=== PATIENT | female | born 1950 | race Caucasian/White ===

== ENCOUNTER 2017-04-08 18:55 | Inpatient (IN) | payer MEDICARE ==
[~2017-04-08] VITALS: Ht 157.5 cm; Wt 79.8 kg
[~2017-04-08 18:55] MED LIST: CHOL100062 PO; LAMO150T33 PO; PROP40TA7 PO; SENN8.6T6 PO
[2017-04-08 20:00] VITALS: BP 138/82
--- NOTE | 2017-04-08 20:00 | NUR ---
GPS/CITIZEN PARTICIPATION SPECIALIST ADMISSION NOTES: RECEIVED 67YR. OLD FEMALE ON A 5150 HOLD FOR GD. PT. UNCOOPERATIVE AND DEPRESSED. ORIENTED PT. TO UNIT AND POLICIES, PROTOCOLS, AND RULES. BELONGINGS CHECKED AND LOGGED. CONTRABAND TAKEN FROM PT. AND LOCKED IN CABINET. SAFETY ENVIRONMENT OBSERVED AT ALL TIMES WITH CALL MUKHERJEE WITHIN REACH. PSYCH AND MEDICAL DR. NOTIFIED OF PT. ADMISSION AND FAMILY CONTACTED. WILL CONTINUE TO MONITOR Q 15 MIN FOR SAFETY AND BEHAVIOR.
[2017-04-08] MEDS ORDERED: LORAZEPAM 0.5 MG TABLET PO PRN (21:00)
[2017-04-08] MEDS ORDERED: MAG HYDROX/AL HYDROX/SIMETH 30 ML UDC PO PRN (21:00)
[2017-04-08] MEDS ORDERED: MAGNESIUM HYDROXIDE 30 ML UDC PO PRN (21:00)
[2017-04-08] MEDS ORDERED: ZOLPIDEM TARTRATE 5 MG TABLET PO PRN (21:00)
[2017-04-08] MEDS ORDERED: ACETAMINOPHEN 325 MG TABLET PO PRN (21:00)
[2017-04-08] MEDS ORDERED: LAMO25TA4 PO (21:16)
[2017-04-08] MEDS ORDERED: HYDR-552 PO (21:16)
[2017-04-08] MEDS ORDERED: QUET25TA PO (21:16)
[2017-04-09 06:43] LABS: CHOLESTEROL 197 mg/dL (<200); HDL CHOLESTEROL 35 mg/dL (40-60); LDL 136 mg/dL (0-99); TRIGLYCERIDES 95 mg/dL (30-150)
[2017-04-09 06:54] LABS: ALBUMIN 3.2 g/dL (3.4-5.0); BILIRUBIN,TOTAL 0.6 mg/dL (0.2-1.0); CALCIUM, SERUM 10.3 mg/dL (8.5-10.1); CREATININE 0.7 mg/dL (0.6-1.3); POTASSIUM 3.6 mmol/L (3.5-5.1)
[2017-04-09 08:00] VITALS: BP 138/76
[2017-04-09] MEDS: LamoTRIgine 25 MG TABLET PO SCH ×3 (11:42→21:32)
[2017-04-09] MEDS: CHOLECALCIFEROL 1,000 UNIT TABLET (VIT D3) PO SCH (11:42)
[2017-04-09] MEDS: QUETIAPINE FUMARATE 25 MG TABLET PO SCH (15:24)
--- NOTE | 2017-04-09 15:42 | NUR ---
Initial Discharge Plan Patient lives at [facility]: [address], [place] [address] and wishes to return upon discharge. RIVKA spoke with pt's sister,Trista [phone], and Trista confirmed that patient is from [facility] and that Trista pays for her rent and manages her finances. RIVKA called Carter Rodriguez from [facility] and left a voicemail for him with contact information. RIVKA will help form a safe and proper discharge.
[2017-04-09 15:58] VITALS: BP 152/89
[2017-04-09] MEDS: PROPRANOLOL HCL 40 MG TABLET PO SCH (16:20)
[2017-04-09 20:00] VITALS: BP_SYST 116; BP_SYST 117; BP_DIAS 72; BP_DIAS 73
[2017-04-09] MEDS: LamoTRIgine 100 MG TABLET PO SCH (21:37)
[2017-04-09] MEDS: SENNOSIDES 8.6 MG TABLET PO SCH (21:38)
[2017-04-10 08:00] VITALS: BP 112/66
--- NOTE | 2017-04-10 08:00 | NUR ---
GPS RN AM NOTES: RECEIVED PT. UNCOOPERATIVE AND DEPRESSED. RESPIRATIONS NON LABORED IN ROOM AIR.DENIES ANY PAIN OR DISTRESS.SAFETY ENVIRONMENT OBSERVED AT ALL TIMES WITH CALL MUKHERJEE WITHIN REACH. WILL CONTINUE TO MONITOR Q 15 MIN FOR SAFETY AND BEHAVIOR.
[2017-04-10] MEDS: QUETIAPINE FUMARATE 25 MG TABLET PO SCH ×2 (08:33→21:10)
[2017-04-10] MEDS: LamoTRIgine 25 MG TABLET PO SCH ×3 (08:33→21:11)
[2017-04-10] MEDS: CHOLECALCIFEROL 1,000 UNIT TABLET (VIT D3) PO SCH (08:33)
[2017-04-10] MEDS: PROPRANOLOL HCL 40 MG TABLET PO SCH ×2 (08:34→16:54)
--- NOTE | 2017-04-10 08:56 | NUR ---
RIVKA received a call from Carter Rodriguez, sales engagement executive at [facility], . He informed RIVKA that patient is welcome to come back after discharge.
--- NOTE | 2017-04-10 09:12 | NUR ---
RIVKA called the ACT team at [phone] and spoke with Clover. Clover informed RIVKA that dependency case manager and staff were at a morning meeting and asked RIVKA for her contact information, which RIVKA provided. RIVKA will follow up later in the day if she does not receive a call from the ACT team.
--- NOTE | 2017-04-10 09:37 | NUR ---
RIVKA had a call back from Lola from the [facility] team at [phone] . Lola asked for updates on the patient and asked if there were any behavioral issues. Lola stated that she will call RIVKA on Thursday to inquire about a discharge plan and after care appointments. RIVKA will follow up on Thursday.
[2017-04-10 13:41] VITALS: BP 112/66
[2017-04-10 16:00] VITALS: BP 105/55
[2017-04-10 20:00] VITALS: BP 115/74
[2017-04-10] MEDS: SENNOSIDES 8.6 MG TABLET PO SCH (21:11)
[2017-04-10] MEDS: LamoTRIgine 100 MG TABLET PO SCH (22:02)
[2017-04-11 08:00] VITALS: BP 108/51
[2017-04-11] MEDS: CHOLECALCIFEROL 1,000 UNIT TABLET (VIT D3) PO SCH (08:57)
[2017-04-11] MEDS: QUETIAPINE FUMARATE 25 MG TABLET PO SCH ×2 (08:57→21:46)
[2017-04-11] MEDS: PROPRANOLOL HCL 40 MG TABLET PO SCH ×2 (08:57→17:00)
[2017-04-11 16:11] VITALS: BP 96/57
[2017-04-11] MEDS: LamoTRIgine 25 MG TABLET PO SCH (17:28)
[2017-04-11 20:00] VITALS: BP 119/66
[2017-04-11] MEDS: SENNOSIDES 8.6 MG TABLET PO SCH (21:47)
[2017-04-11] MEDS: LamoTRIgine 100 MG TABLET PO SCH (21:47)
[2017-04-12 08:00] VITALS: BP 113/65
[2017-04-12] MEDS: CHOLECALCIFEROL 1,000 UNIT TABLET (VIT D3) PO SCH (08:01)
[2017-04-12] MEDS: QUETIAPINE FUMARATE 25 MG TABLET PO SCH ×3 (08:01→16:22)
[2017-04-12] MEDS: LamoTRIgine 25 MG TABLET PO SCH ×2 (08:01→16:22)
[2017-04-12] MEDS: PROPRANOLOL HCL 40 MG TABLET PO SCH ×2 (08:02→16:23)
[2017-04-12 15:23] VITALS: BP 121/86
--- NOTE | 2017-04-12 19:28 | NUR ---
rn note; RECEIVED POT IN BED LAYING DOWN COMFORTABLY. ALERT AND RESPONSIVE. PREFERRED TO BE QUIET. NO COMBATIVE BEHAVIOR. NO C/O PAIN OR DISCOMFORT. NO VERBALIZATION OF SUICIDE. WILL CONT TO MONITOR.
[2017-04-12 20:06] VITALS: BP 131/78
[2017-04-12 20:17] VITALS: BP 131/78
[2017-04-12] MEDS: SENNOSIDES 8.6 MG TABLET PO SCH (21:54)
[2017-04-12] MEDS: LamoTRIgine 100 MG TABLET PO SCH (21:54)
--- NOTE | 2017-04-13 06:23 | NUR ---
rn note; PT IN BED SLEEPING, AROUSES EASILY. HAD A GOOD NIGHT SLEEP W/ NO PSYCH OR BEHAVIORAL ISSUES. PT REFUSED TAKING PICTURES FROM HER ABD SX SITE, OTHER BRANCH COMPLIANT W/ MEDICATIONS AND POC. NEEDS ATTENDED . BED LOW LOCKED . WILL CONT TO MONITOR AND WILL ENDORSE TO AM SHIFT FOR ARIS.
[2017-04-13 08:00] VITALS: BP 116/70
[2017-04-13] MEDS: PROPRANOLOL HCL 40 MG TABLET PO SCH ×2 (09:15→17:06)
[2017-04-13] MEDS: LamoTRIgine 25 MG TABLET PO SCH ×2 (09:15→17:04)
[2017-04-13] MEDS: QUETIAPINE FUMARATE 25 MG TABLET PO SCH ×4 (09:16→21:29)
[2017-04-13] MEDS: CHOLECALCIFEROL 1,000 UNIT TABLET (VIT D3) PO SCH (09:16)
--- NOTE | 2017-04-13 10:00 | NUR ---
RN NOTES PT. HAS 5 ABDOMINAL HORIZONTAL SCABS ACROSS ABDOMEN, WOUNDS LOOK PURPLE WITH DRY SKIN. PT. REFUSED TO HAVE PICTURES TAKEN OF HER ABDOMINAL WOUNDS.
--- NOTE | 2017-04-13 10:05 | NUR ---
RN NOTES PT. HAD ABDOMINAL SURGERY MARCH 2017 PER PT.
--- NOTE | 2017-04-13 13:30 | NUR ---
RN NOTES IN THE MORNING PT. WAS HAVING SHAKING LIKE TREMORS IN ARMS, RIGHT HAND MORE INTENSE WHEN HOLDING A CUP OF WATER WHILE TAKING MEDICATIONS. NOTIFIED CVICU RN ABOUT PT.'S CONDITION, WHEN PT. WAS BEING EXAMINED, NO NEW ORDERS GIVEN AT THIS TIME.
[2017-04-13 16:43] VITALS: BP 105/52
[2017-04-13 20:37] VITALS: BP 95/55
[2017-04-13] MEDS: SENNOSIDES 8.6 MG TABLET PO SCH (21:25)
[2017-04-13] MEDS: LamoTRIgine 100 MG TABLET PO SCH (21:26)
[2017-04-14 08:00] VITALS: BP 104/58
[2017-04-14] MEDS: QUETIAPINE FUMARATE 25 MG TABLET PO SCH ×4 (08:39→21:26)
[2017-04-14] MEDS: LamoTRIgine 25 MG TABLET PO SCH ×2 (08:39→17:57)
[2017-04-14] MEDS: PROPRANOLOL HCL 40 MG TABLET PO SCH ×2 (08:40→17:58)
[2017-04-14] MEDS: CHOLECALCIFEROL 1,000 UNIT TABLET (VIT D3) PO SCH (09:27)
[2017-04-14 11:12] LABS: BASOPHILS % (AUTO) 0.4 % (0.0-2.0); EOSINOPHILS # (AUTO) 0.2 /CMM (0.0-0.7); EOSINOPHILS % (AUTO) 2.6 % (0.0-6.0); HEMATOCRIT 38 % (33-45); HEMOGLOBIN 12.9 g/dL (11.5-14.8); LYMPHOCYTES # (AUTO) 1.2 /CMM (0.8-4.8); LYMPHOCYTES % (AUTO) 15.5 % (20.0-44.0); MEAN CORPUSCULAR HEMOGLOBIN 31 PG (26.0-33.0); MEAN CORPUSCULAR HGB CONC 34 g/dl (31.0-36.0); MEAN CORPUSCULAR VOLUME 93 fL (82-100); MONOCYTES # (AUTO) 0.4 /CMM (0.1-1.30); MONOCYTES % (AUTO) 5.7 % (2.0-12.0); NEUTROPHILS # (AUTO) 5.7 /CMM (1.8-8.9); NEUTROPHILS % (AUTO) 75.8 % (43.0-81.0); PLATELET COUNT (AUTO) 235 /CMM (150-450); RDW COEFFICIENT OF VARIATION 14.2 (11.5-15.0); RED BLOOD CELL COUNT(AUTO) 4.13 MIL/uL (4.0-5.2); WHITE BLOOD COUNT (AUTO) 7.5 K/uL (4.3-11.0)
[2017-04-14 11:17] LABS: CALCIUM, SERUM 10.5 mg/dL (8.5-10.1); CREATININE 0.9 mg/dL (0.6-1.3); POTASSIUM 3.7 mmol/L (3.5-5.1)
[2017-04-14 16:06] VITALS: BP 112/67
[2017-04-14 20:51] VITALS: BP 133/71
[2017-04-14] MEDS: ATORVASTATIN 10 MG TABLET PO SCH (21:25)
[2017-04-14] MEDS: LamoTRIgine 100 MG TABLET PO SCH (21:25)
[2017-04-14] MEDS: SENNOSIDES 8.6 MG TABLET PO SCH (21:26)
[2017-04-15 08:00] VITALS: BP 122/62
[2017-04-15] MEDS: QUETIAPINE FUMARATE 25 MG TABLET PO SCH ×4 (10:44→22:03)
[2017-04-15] MEDS: CHOLECALCIFEROL 1,000 UNIT TABLET (VIT D3) PO SCH (10:44)
[2017-04-15] MEDS: LamoTRIgine 25 MG TABLET PO SCH ×2 (10:45→18:27)
[2017-04-15] MEDS: PROPRANOLOL HCL 40 MG TABLET PO SCH ×2 (10:45→17:00)
[2017-04-15 16:42] VITALS: BP 100/59
--- NOTE | 2017-04-15 18:30 | NUR ---
DR.FARRAG JAMES IN TO SEE PT.
[2017-04-15 20:08] VITALS: BP 105/66
[2017-04-15] MEDS: ATORVASTATIN 10 MG TABLET PO SCH (22:01)
[2017-04-15] MEDS: SENNOSIDES 8.6 MG TABLET PO SCH (22:03)
[2017-04-15] MEDS: LamoTRIgine 100 MG TABLET PO SCH (22:08)
[2017-04-16 08:00] VITALS: BP 147/75
[2017-04-16] MEDS: QUETIAPINE FUMARATE 25 MG TABLET PO SCH ×4 (10:44→21:19)
[2017-04-16] MEDS: CHOLECALCIFEROL 1,000 UNIT TABLET (VIT D3) PO SCH (10:44)
[2017-04-16] MEDS: LamoTRIgine 25 MG TABLET PO SCH ×2 (10:44→17:44)
[2017-04-16] MEDS: PROPRANOLOL HCL 40 MG TABLET PO SCH ×2 (10:47→17:44)
[2017-04-16 16:00] VITALS: BP 103/65
[2017-04-16 20:00] VITALS: BP 111/65
[2017-04-16] MEDS: LamoTRIgine 100 MG TABLET PO SCH (21:16)
[2017-04-16] MEDS: SENNOSIDES 8.6 MG TABLET PO SCH (21:18)
[2017-04-16] MEDS: ATORVASTATIN 10 MG TABLET PO SCH (21:19)
[2017-04-17 08:00] VITALS: BP 129/72
[2017-04-17] MEDS: LamoTRIgine 25 MG TABLET PO SCH (08:33)
[2017-04-17] MEDS: CHOLECALCIFEROL 1,000 UNIT TABLET (VIT D3) PO SCH (08:33)
[2017-04-17 08:34] VITALS: BP 129/70
[2017-04-17] MEDS: PROPRANOLOL HCL 40 MG TABLET PO SCH (08:34)
[2017-04-17] MEDS: QUETIAPINE FUMARATE 25 MG TABLET PO SCH (08:34)
--- NOTE | 2017-04-17 11:00 | NUR ---
GPS/RN PT D/C TO ASSISTED LIVING ([facility] [address], [place] [address] ) VIA PRIVATE TRANSPORTATION. NO SI OR HI AT THE TIME OF D/C. PT REFUSED PICTURES TAKEN. BELONGINGS RETURNED. EXIT CARE INSTRUCTIONS AND PRESCRIPTIONS PROVIDED. PT WAS ACCOMPANIED VIA W/C TO TRANSPORTATION.
--- NOTE | 2017-04-17 11:35 | NUR ---
Discharge Note Patient will be discharged to assisted living, [facility] [address], [place] [address] via transportation arranged by aids social worker through [employer], who handles all transportation to the [facility].. Patients sister, Trista [phone] is aware of the discharge and in agreement with the plan. Trista is supportive of patient. Patient will be seen by manager supply chain Aydee Martini from [facility] team, [address] [place] [address], on Thursday, 04/21 at 12:00pm. Patient stated that she did not have a medical doctor and SW made a referral to a medical doctor at [address] [place] [address] . Patient is not a smoker and does not struggle with substance/alcohol abuse.
== END 2017-04-17 11:00 | DRG 885 ==
LOC: GPS 18:55
PROVIDERS: ADMIT Psychiatry & Neurology Psychiatry; ATTEND Internal Medicine
DX: F29 Unspecified psychosis not due to a substance or known physiological condition (principal); E78.5 Hyperlipidemia, unspecified; I10 Essential (primary) hypertension; J45.909 Unspecified asthma, uncomplicated; Z79.899 Other long term (current) drug therapy; F31.9 Bipolar disorder, unspecified; Z73.6 Limitation of activities due to disability
CPT/HCPCS: 36415; 80048-TC; 80053-TC; 80061-TC; 85025-TC; 87081-TC

== ENCOUNTER 2022-04-04 18:43 | Inpatient (IN) | payer MEDICARE ==
[~2022-04-04] VITALS: Ht 160 cm; Wt 52.6 kg
[~2022-04-04 18:43] MED LIST changes: +HYDR-4384 PO; -LAMO150T33 PO; +LAMO150T6 PO; +LAMO25TA4 PO; +QUET25TA PO; +SENN-261 PO; -SENN8.6T6 PO
[2022-04-05 02:55] VITALS: BP 133/60
[2022-04-05] MEDS ORDERED: CARB1TAB21 PO (03:01)
[2022-04-05] MEDS ORDERED: LORA-259 PO (03:02)
[2022-04-05] MEDS ORDERED: MIRT-121 PO (03:03)
[2022-04-05 03:11] VITALS: BP 115/67
[2022-04-05] MEDS ORDERED: ACETAMINOPHEN 325 MG TABLET PO PRN (03:30)
[2022-04-05] MEDS ORDERED: BLOOD SUGAR DIAGNOSTIC 1 EACH STRIP IN ONE (03:30)
[2022-04-05] MEDS ORDERED: TEMAZEPAM 7.5 MG CAPSULE PO PRN (03:30)
[2022-04-05] MEDS ORDERED: LORAZEPAM 0.5 MG TABLET PO PRN (03:30)
[2022-04-05] MEDS ORDERED: MAG HYDROX/AL HYDROX/SIMETH 30 ML UDC PO PRN (03:30)
[2022-04-05] MEDS ORDERED: MAGNESIUM HYDROXIDE 30 ML UDC PO PRN (03:30)
--- NOTE | 2022-04-05 03:58 | NUR ---
RN NOTES : ADMISSION NOTES: ADMITTED THIS 72Y/O FEMALE PATIENT DIRECT ADMIT FROM [facility] ,ADMITTED TO 5150 HOLD GD PER HOLD REFUSAL TO EAT, CONFUSED TO WITH THOUGHT BLOCKING UPON FACE TO FACE ASSESSMENT PATIENT IS A&O X3 DEPRESSED ,EASILY AGITATED ,DISORGNIZED, DISHELVED ,POOR DECISION MAKING, THOUGHT BLOCKING ,DENIES SI /HI AT THIS TIME, PT. IS POOR HISTORIAN, POOR INSIGHT ,POOR JUDGEMENT , BOTH MD AWARE AND NOTIFIED OF THE ADMISSION, PT. RIGHTS DISCUSS BY DISTRIBUTION DISPATCHER , PROVIDE THE PT. WITH HANDBOOK, AND MEDICATIONS GUIDE, ENVIRONMENTAL SAFETY CHECK DONE, ENCOURAGED PT. VERBALIZED ANY FEELING CONCERN TO STAFF, ORIENT TO UNIT POLICY, NO ACUTE DISTRESS NOTED,VITAL SIGNS WNL ,DENIES ANY PAIN AT THIS TIME,WILL CONTINUE TO MONITOR FOR Q15 SAFETY AND BEHAVIOR.
--- NOTE | 2022-04-05 06:56 | NUR ---
RN NOTE: CALLED SARAH ROWELL ( SISTER) AT [phone], AND NOTIFIED PATIENT'S ADMITTED AT GPS UNIT.
--- NOTE | 2022-04-05 06:58 | NUR ---
RN NOTES: COLLECT MRSA SWAB SEND. TO LAB
[2022-04-05 08:00] VITALS: BP 129/69
[2022-04-05] MEDS: DIVALPROEX SODIUM 125 MG CAP.SPRINK PO SCH ×2 (15:28→16:49)
[2022-04-05 16:00] VITALS: BP 122/63
[2022-04-05] MEDS: CARBIDOPA/LEVODOPA 25/100 MG 1 UDTAB PO SCH (16:49)
--- NOTE | 2022-04-05 19:30 | NUR ---
GPS RN NOTE, RECEIVED PATIENT AWAKE AND IN BED, NO S/S OR COMPLAINTS OF PAIN AT THIS TIME. PATIENT IS DISPLAYING NO S/S OF APPARENT DISTRESS AT THIS TIME. PATIENT BREATHING IS UNLABORED WITH EQUAL RISE AND FALL OF THE CHEST. PATIENT IS ALERT AND ORIENTED X 2 ON ROOM AIR WITH A SPO2 96%. PATIENT IS COMPLIANT WITH MEDICATIONS, CALM, POLITE, DISORGANIZED, FORGETFUL, AND COOPERATIVE. PATIENT DENIES SUICIDAL AND HOMICIDAL IDEATIONS AT THIS TIME. PATIENT ASSISTED WITH TURNING AND REPOSITIONING Q2HR AND PRN FOR COMFORT AND CIRCULATION. PATIENT HAS NO NEEDS AT THIS TIME. PATIENT EDUCATED ON THE USE OF THE CALL MUKHERJEE. PATIENT BED SIDE RAILS UP X 2 FOR SAFETY. PATIENT BED IS LOCKED, LOW, WITH BED ALARM ON. WILL CONTINUE TO MONITOR THIS PATIENT Q15 MINUTES WITH THE HELP OF STAFF TO MAINTAIN SAFETY.
[2022-04-05 21:01] VITALS: BP 130/58
[2022-04-05] MEDS ORDERED: QUETIAPINE FUMARATE 25 MG TABLET PO SCH (22:00)
[2022-04-06 06:45] LABS: BASOPHILS % (AUTO) 0.4 % (0.0-2.0); EOSINOPHILS % (AUTO) 2.1 % (0.0-6.0); HEMATOCRIT 38 % (33-45); HEMOGLOBIN 12.7 g/dL (11.5-14.8); LYMPHOCYTES # (AUTO) 1.6 K/uL (0.8-4.8); LYMPHOCYTES % (AUTO) 24.2 % (20.0-44.0); MEAN CORPUSCULAR HGB CONC 33 g/dl (31.0-36.0); MEAN CORPUSCULAR VOLUME 97 fL (82-100); MONOCYTES # (AUTO) 0.5 K/uL (0.1-1.30); NEUTROPHILS # (AUTO) 4.3 K/uL (1.8-8.9); NEUTROPHILS % (AUTO) 65.3 % (43.0-81.0); PLATELET COUNT (AUTO) 213 K/uL (150-450); RED BLOOD CELL COUNT(AUTO) 3.96 MIL/uL (4.0-5.2); WHITE BLOOD COUNT (AUTO) 6.7 K/uL (4.3-11.0)
[2022-04-06 07:00] LABS: CALCIUM, SERUM 10.7 mg/dL (8.5-10.1); CREATININE 0.7 mg/dL (0.6-1.3); POTASSIUM 4.1 mmol/L (3.5-5.1)
[2022-04-06 08:00] VITALS: BP 137/72
[2022-04-06] MEDS: CARBIDOPA/LEVODOPA 25/100 MG 1 UDTAB PO SCH ×3 (08:44→17:55)
[2022-04-06 16:01] VITALS: BP 120/69
[2022-04-06] MEDS: OXCARBAZEPINE 150 MG TABLET PO SCH (17:55)
[2022-04-06 20:24] VITALS: BP 137/72
[2022-04-06] MEDS: QUETIAPINE FUMARATE 25 MG TABLET PO SCH (21:40)
[2022-04-07 08:00] VITALS: BP 142/90
[2022-04-07] MEDS: OXCARBAZEPINE 150 MG TABLET PO SCH ×2 (08:45→17:19)
[2022-04-07] MEDS: CARBIDOPA/LEVODOPA 25/100 MG 1 UDTAB PO SCH ×3 (08:59→17:19)
--- NOTE | 2022-04-07 10:11 | NUR ---
RIVKA Initial Discharge Plan: Patient currently resides at [facility] located at [address] [place] [address], [place] [address], . RIVKA contacted admin Dennise ([phone]) and left a detailed voicemail in regards to pt returning back and wanting to gather collateral. RIVKA will work with the MD, treatment team, and family to help coordinate appropriate discharge.
--- NOTE | 2022-04-07 10:11 | NUR ---
RIVKA Clinical Note: Pt placed on a 5150 hold for GD. Per hold, pt was not eating or taking a shower. Patient currently resides at [facility] located at [address] [place] [address], . RIVKA contacted admin Dennise ([phone]) and left a detailed voicemail in regards to pt returning back and wanting to gather collateral.
--- NOTE | 2022-04-07 10:12 | NUR ---
RIVAK Family Contact: SW attempted to contact pt's sister Trista ([phone]) to gather collateral. SW left a detailed voicemail.
--- NOTE | 2022-04-07 10:12 | NUR ---
Treatment Plan: Pt refused to sign treatment plan and appeared fearful.
--- NOTE | 2022-04-07 10:42 | NUR ---
RIVKA Family Contact: SW received a call from pt's sister Trista ([phone]) to gather collateral and discuss treatment/discharge plan. Sister stated that pt had an eye surgery couple of months ago and has been residing with her. She stated that her behavior decompensated at home. She stated that her speech/response has been delayed and she has been this way for a while and that this is not a new behavior. Sister stated that she would want pt back home upon discharge.
--- NOTE | 2022-04-07 12:23 | NUR ---
Facility Contact: SW received a call from [facility] located at [address] [place] [address], , admin Dennise ([phone]) who stated that pt has been residing with them and that they are a independent living.
[2022-04-07 16:00] VITALS: BP 147/93
[2022-04-07 20:15] VITALS: BP 138/78
[2022-04-07] MEDS: QUETIAPINE FUMARATE 25 MG TABLET PO SCH (22:37)
--- NOTE | 2022-04-08 01:38 | NUR ---
rn note prn Ativan given for agitation pt keeps coming out to the hallway talking about seeing lights. tolerated well.
[2022-04-08 08:00] VITALS: BP 123/75
[2022-04-08] MEDS: OXCARBAZEPINE 150 MG TABLET PO SCH ×2 (10:12→16:36)
[2022-04-08] MEDS: CARBIDOPA/LEVODOPA 25/100 MG 1 UDTAB PO SCH ×3 (10:12→16:36)
--- NOTE | 2022-04-08 10:44 | NUR ---
RIVKA Family Contact: SW contacted pt's sister Trista ([phone]) and left a voicemail and requested to discuss about discharge.
--- NOTE | 2022-04-08 13:08 | NUR ---
[facility]: SW received a call from patient's window caser Teresa ([phone]) who stated that she will be picking pt up when ready for dc. She stated that she will be making aftercare appointments for pt with Psychiatrist, Dr. Hodgson. She did report that the available days that she will be able to pick pt up is Thursday or .
[2022-04-08 16:06] VITALS: BP 112/63
--- NOTE | 2022-04-08 19:14 | NUR ---
GPS END OF SHIFT REPORT PATIENT AWAKE AND ABLE TO NEEDS KNOWN AND WITH CONFUSION , COMPLIANT WIITH CARE AND ATTEND ACTIVITIES IN THE MORNING AND AFTER NOON , NO BEAHAVIOR NOTED , ALL NEEDS ATTENDED , DUE MEDS GIVEN ORDERED , AMBULATORY , ALL NEEDS ATTENDED
[2022-04-08 20:21] VITALS: BP 108/54
[2022-04-08] MEDS: QUETIAPINE FUMARATE 25 MG TABLET PO SCH (21:14)
[2022-04-09 08:00] VITALS: BP 124/74
[2022-04-09] MEDS: OXCARBAZEPINE 150 MG TABLET PO SCH ×2 (08:58→17:37)
[2022-04-09] MEDS: CARBIDOPA/LEVODOPA 25/100 MG 1 UDTAB PO SCH ×3 (08:59→17:38)
--- NOTE | 2022-04-09 09:11 | NUR ---
Court Notification: SW contacted pt's sister Trista ([phone]) and left a voicemail of pt's 9674 hearing today.
--- NOTE | 2022-04-09 11:47 | NUR ---
Court Hearing: Patient's court hearing for 3170 was today and it was upheld for GD.
[2022-04-09 16:00] VITALS: BP 107/66
[2022-04-09 19:48] VITALS: BP 120/62
[2022-04-09] MEDS: QUETIAPINE FUMARATE 25 MG TABLET PO SCH (21:30)
[2022-04-10 08:00] VITALS: BP 111/62
[2022-04-10] MEDS: CARBIDOPA/LEVODOPA 25/100 MG 1 UDTAB PO SCH ×3 (08:57→16:31)
[2022-04-10] MEDS: OXCARBAZEPINE 150 MG TABLET PO SCH ×2 (08:57→16:31)
[2022-04-10 16:00] VITALS: BP 121/63
--- NOTE | 2022-04-10 18:35 | NUR ---
RN-NOTES PATIENT VISIBLE IN THE UNIT,ATTENDED GROUPS A/O X2,CALM,COOPERATIVE, COMPLIANT WITH MEDICATION,NO ACUTE DISTRESS NOTED. AMBULATORY STEADY GAIT. ALL NEEDS ATTENDED AND ANTICIPATED.WILL CONT. MONITORING FOR SAFETY AND BEHAVIOR.WILL ENDORSE TO INCOMING NURSE FOR CONTINUITY OF CARE.
[2022-04-10 20:00] VITALS: BP 131/106
--- NOTE | 2022-04-10 20:19 | NUR ---
RN NOTES: PATIENT WATCHING TV IN ACTIVITY ROOM, NO S/SX OF ACUTE DISTRESS NOTED. PATIENT, CONFUSED GUARDED, EASILY AGITATED, DISORGANIZED,GIVING INAPPROPRIATE ANSWER TO QUESTIONS, NEEDS FREQUENT REDIRECTION.ENCOURAGE TO VERBALIZED ANY FEELING OR CONCERN, SAFETY MEASURES IN PLACE. WILL CONTINUE TO MONITOR Q15MIN ROUNDS FOR SAFETY AND BEHAVIOR.
[2022-04-10] MEDS: QUETIAPINE FUMARATE 25 MG TABLET PO SCH (22:01)
[2022-04-11 08:00] VITALS: BP 130/77
[2022-04-11] MEDS: OXCARBAZEPINE 150 MG TABLET PO SCH ×3 (08:06→21:25)
[2022-04-11] MEDS: CARBIDOPA/LEVODOPA 25/100 MG 1 UDTAB PO SCH ×3 (08:06→16:36)
[2022-04-11 16:00] VITALS: BP 116/60
[2022-04-11] MEDS: ENSURE ENLIVE 237 ML LIQUID (VANILLA) PO SCH (17:44)
--- NOTE | 2022-04-11 18:56 | NUR ---
RN-NOTES PATIENT VISIBLE IN THE UNIT,CALM ,ATTENDED GROUPS A/O X2,CALM,COOPERATIVE, COMPLIANT WITH MEDICATION,NO ACUTE DISTRESS NOTED. AMBULATORY STEADY GAIT. ALL NEEDS ATTENDED AND ANTICIPATED.WILL CONT. MONITORING FOR SAFETY AND BEHAVIOR.WILL ENDORSE TO INCOMING NURSE FOR CONTINUITY OF CARE.
--- NOTE | 2022-04-11 19:30 | NUR ---
GPS RN NOTE, RECEIVED PATIENT AWAKE AND IN BED, NO S/S OR COMPLAINTS OF PAIN AT THIS TIME. PATIENT IS DISPLAYING NO S/S OF APPARENT DISTRESS AT THIS TIME. PATIENT BREATHING IS UNLABORED WITH EQUAL RISE AND FALL OF THE CHEST. PATIENT IS ALERT AND ORIENTED X 2 ON ROOM AIR WITH A SPO2 99%. PATIENT IS COMPLIANT WITH MEDICATIONS, CALM, POLITE, DISORGANIZED, FORGETFUL, AND COOPERATIVE. PATIENT DENIES SUICIDAL AND HOMICIDAL IDEATIONS AT THIS TIME. PATIENT ASSISTED WITH TURNING AND REPOSITIONING Q2HR AND PRN FOR COMFORT AND CIRCULATION. PATIENT HAS NO NEEDS AT THIS TIME. PATIENT EDUCATED ON THE USE OF THE CALL MUKHERJEE. PATIENT BED SIDE RAILS UP X 2 FOR SAFETY. PATIENT BED IS LOCKED, LOW, WITH BED ALARM ON. WILL CONTINUE TO MONITOR THIS PATIENT Q15 MINUTES WITH THE HELP OF STAFF TO MAINTAIN SAFETY.
[2022-04-11 20:04] VITALS: BP 140/67
[2022-04-11] MEDS: QUETIAPINE FUMARATE 25 MG TABLET PO SCH (21:25)
[2022-04-12 08:00] VITALS: BP 135/66
[2022-04-12] MEDS: OXCARBAZEPINE 150 MG TABLET PO SCH ×3 (08:15→21:37)
[2022-04-12] MEDS: ENSURE ENLIVE 237 ML LIQUID (VANILLA) PO SCH ×2 (08:15→16:29)
[2022-04-12] MEDS: CARBIDOPA/LEVODOPA 25/100 MG 1 UDTAB PO SCH ×3 (08:16→16:28)
[2022-04-12 16:00] VITALS: BP 137/82
--- NOTE | 2022-04-12 17:56 | NUR ---
RN-NOTES PATIENT STAY IN THE ROOM MOST OF THE TIME,CALM ,GUARDED A/O X2,COOPERATIVE WITH THE STAFF. COMPLIANT WITH MEDICATION,NO ACUTE DISTRESS NOTED. AMBULATORY STEADY GAIT. ALL NEEDS ATTENDED AND ANTICIPATED.WILL CONT. MONITORING FOR SAFETY AND BEHAVIOR.WILL ENDORSE TO INCOMING NURSE FOR CONTINUITY OF CARE.
--- NOTE | 2022-04-12 19:30 | NUR ---
GPS RN NOTE, RECEIVED PATIENT AWAKE AND IN BED, NO S/S OR COMPLAINTS OF PAIN AT THIS TIME. PATIENT IS DISPLAYING NO S/S OF APPARENT DISTRESS AT THIS TIME. PATIENT BREATHING IS UNLABORED WITH EQUAL RISE AND FALL OF THE CHEST. PATIENT IS ALERT AND ORIENTED X 2 ON ROOM AIR WITH A SPO2 97%. PATIENT IS COMPLIANT WITH MEDICATIONS, CALM, POLITE, DISORGANIZED, FORGETFUL, AND COOPERATIVE. PATIENT DENIES SUICIDAL AND HOMICIDAL IDEATIONS AT THIS TIME. PATIENT ASSISTED WITH TURNING AND REPOSITIONING Q2HR AND PRN FOR COMFORT AND CIRCULATION. PATIENT HAS NO NEEDS AT THIS TIME. PATIENT EDUCATED ON THE USE OF THE CALL MUKHERJEE. PATIENT BED SIDE RAILS UP X 2 FOR SAFETY. PATIENT BED IS LOCKED, LOW, WITH BED ALARM ON. WILL CONTINUE TO MONITOR THIS PATIENT Q15 MINUTES WITH THE HELP OF STAFF TO MAINTAIN SAFETY.
[2022-04-12 20:00] VITALS: BP 143/79
[2022-04-12] MEDS: QUETIAPINE FUMARATE 25 MG TABLET PO SCH (21:37)
[2022-04-13 08:00] VITALS: BP 138/70
[2022-04-13] MEDS: CARBIDOPA/LEVODOPA 25/100 MG 1 UDTAB PO SCH ×3 (08:26→17:23)
[2022-04-13] MEDS: OXCARBAZEPINE 150 MG TABLET PO SCH ×3 (08:26→21:35)
[2022-04-13] MEDS: ENSURE ENLIVE 237 ML LIQUID (VANILLA) PO SCH ×2 (08:27→17:24)
[2022-04-13 16:00] VITALS: BP 114/72
[2022-04-13 20:19] VITALS: BP 133/74
[2022-04-13] MEDS: QUETIAPINE FUMARATE 25 MG TABLET PO SCH (21:35)
[2022-04-14 08:00] VITALS: BP 113/78
[2022-04-14] MEDS: OXCARBAZEPINE 150 MG TABLET PO SCH ×3 (08:44→21:12)
[2022-04-14] MEDS: CARBIDOPA/LEVODOPA 25/100 MG 1 UDTAB PO SCH ×3 (09:30→17:30)
[2022-04-14] MEDS: ENSURE ENLIVE 237 ML LIQUID (VANILLA) PO SCH ×2 (09:30→17:30)
--- NOTE | 2022-04-14 13:27 | NUR ---
RIVKA Family Contact: SW received a call from pt's sister Trista ([phone]) and discussed treatment/discharge. RIVKA stated that this residential mortgage underwriter is waiting for family caseworker Teresa to confirm worm picker time.
[2022-04-14 16:00] VITALS: BP 111/58
[2022-04-14 19:39] VITALS: BP 130/58
[2022-04-14] MEDS: QUETIAPINE FUMARATE 25 MG TABLET PO SCH (21:12)
[2022-04-15 08:00] VITALS: BP 136/69
[2022-04-15] MEDS: OXCARBAZEPINE 150 MG TABLET PO SCH ×3 (08:42→21:48)
[2022-04-15] MEDS: ENSURE ENLIVE 237 ML LIQUID (VANILLA) PO SCH ×2 (08:53→17:23)
[2022-04-15] MEDS: CARBIDOPA/LEVODOPA 25/100 MG 1 UDTAB PO SCH ×3 (08:53→17:23)
--- NOTE | 2022-04-15 11:16 | NUR ---
SOD CUTTER: SW SPOKE WITH PT'S SOD CUTTER CONG ([phone]) WHO STATED THAT SHE WILL IMPORT/EXPORT ADMINISTRATOR PT BETWEEN 10-10:30AM.
[2022-04-15 16:00] VITALS: BP 116/62
[2022-04-15 19:30] VITALS: BP 113/68
[2022-04-15] MEDS: QUETIAPINE FUMARATE 25 MG TABLET PO SCH (21:48)
[2022-04-16 08:00] VITALS: BP 130/79
[2022-04-16] MEDS: OXCARBAZEPINE 150 MG TABLET PO SCH ×3 (08:36→21:24)
[2022-04-16] MEDS: ENSURE ENLIVE 237 ML LIQUID (VANILLA) PO SCH ×2 (08:37→17:00)
[2022-04-16] MEDS: CARBIDOPA/LEVODOPA 25/100 MG 1 UDTAB PO SCH ×3 (09:09→17:00)
[2022-04-16 16:27] VITALS: BP 136/58
[2022-04-16 20:11] VITALS: BP 146/67
[2022-04-16] MEDS: QUETIAPINE FUMARATE 25 MG TABLET PO SCH (21:24)
[2022-04-17 08:00] VITALS: BP 142/70
--- NOTE | 2022-04-17 08:05 | NUR ---
SW Discharge Note: Patient will be discharged back to [facility] located at [address], [place] [address]; ([phone]). Patients classification case manager Senait ([phone]) will picker / packer pt between 10-10:30AM. Patient is alert and oriented x2. Patient happy to be going home to [facility]. Patient denies suicidal or homicidal ideation. Patient denies visual/auditory hallucinations. Patients sister Trista ([phone]) is aware and agreeable. SW gave referral for primary care at [facility] located at [address] [place] [address]; ([phone]). Patient was provided resources for a psychiatrist: [facility] ([phone]), [facility] ([phone]), and [facility] ([phone]). Patient will follow up with her (Psychiatrist) Dr. Bustamante located at [facility] located at [address] [place] [address]; ([phone]). Patient presents with euthymic mood and congruent affect.
[2022-04-17] MEDS: CARBIDOPA/LEVODOPA 25/100 MG 1 UDTAB PO SCH (08:34)
[2022-04-17] MEDS: OXCARBAZEPINE 150 MG TABLET PO SCH (08:34)
[2022-04-17] MEDS: ENSURE ENLIVE 237 ML LIQUID (VANILLA) PO SCH (08:34)
--- NOTE | 2022-04-17 09:16 | NUR ---
Dr. Grissom gave an order to D/C hold and D/C back to sister's house and to follow up with the psychiatrist and was referred to primary care. Dr. Grissom provided prescriptions and will be called in to the pharmacy.
--- NOTE | 2022-04-17 11:01 | NUR ---
RN-DISCHARGE NOTES PATIENT HAD A DISCHARGE ORDER FROM DR. BEAVERS ( PSYCHIATRIST) KAYLEY CARDOZO ( MARBLE MACHINE OPERATOR) MEDICALLY CLEARED PATIENT FOR DISCHARGE. PATIENT LEFT THE UNIT IN STABLE CONDITION A/O X2 AMBULATORY STEADY GAIT. PATIENT DID NOT VERBALIZE SI/HI,DENIES VISUAL/AUDITORY HALLUCINATIONS AT THE TIME OF DISCHARGE. PATIENT UNABLE TO SIGN ALL DISCHARGE PAPERS DUE TO SHAKING HANDS . PATIENT WAS WHEELED DOWN THE LOBBY BY ONE HAND WOVEN CARPET AND RUG MENDER AND THE HORSE RACETRACK MANAGER FOR SAFETY. PATIENT WAS HORSE RACE STARTER BY SPREADER OPERATOR [employer] VIA VAN. ALL DISCHARGE PAPERS WAS ENDORSE TO OSC[employer] INCLUDING ALL PATIENT'S BELONGINGS AND OWN MEDICATIONS. ALL RX WAS FAXED TO [facility] [phone], RECEIVED AND VERIFIED WITH ANGELA ( PHARMACIES).
== END 2022-04-17 11:00 | DRG 885 ==
LOC: GPS 04-05 01:47
PROVIDERS: ADMIT Psychiatry & Neurology Psychosomatic Medicine; ATTEND Registered Nurse
DX: F25.0 Schizoaffective disorder, bipolar type (principal); E44.1 Mild protein-calorie malnutrition; I10 Essential (primary) hypertension; G20 Parkinson's disease; Z20.822 Contact with and (suspected) exposure to COVID-19; J45.909 Unspecified asthma, uncomplicated; M19.90 Unspecified osteoarthritis, unspecified site; Z90.710 Acquired absence of both cervix and uterus; Z91.14 Patient's other noncompliance with medication regimen; Z79.899 Other long term (current) drug therapy; E83.52 Hypercalcemia; Z73.6 Limitation of activities due to disability; E88.09 Other disorders of plasma-protein metabolism, not elsewhere classified; E78.5 Hyperlipidemia, unspecified; F32.A Depression, unspecified; Z85.42 Personal history of malignant neoplasm of other parts of uterus; Z87.891 Personal history of nicotine dependence; F29 Unspecified psychosis not due to a substance or known physiological condition; F02.80 Dementia in other diseases classified elsewhere, unspecified severity, without behavioral disturbance, psychotic disturbance, mood disturbance, and anxiety
CPT/HCPCS: 36415; 80048-TC; 80061-TC; 82962-TC; 85025-TC; 87081-TC

== ENCOUNTER 2022-04-30 17:48 | Inpatient (IN) | payer MEDICARE ==
[~2022-04-30] VITALS: Ht 165.1 cm; Wt 43.1 kg
[~2022-04-30 17:48] MED LIST changes: +CARB1TAB21 PO; -CHOL100062 PO; -HYDR-4384 PO; -LAMO150T6 PO; -LAMO25TA4 PO; -PROP40TA7 PO; -QUET25TA PO; -SENN-261 PO
--- NOTE | 2022-04-30 18:20 | NUR ---
RN-CO: DR BEAVERS MADE AWARE OF THIS ADMISSION.
[2022-04-30] MEDS ORDERED: MAGNESIUM HYDROXIDE 30 ML UDC PO PRN (18:30)
[2022-04-30] MEDS ORDERED: MAG HYDROX/AL HYDROX/SIMETH 30 ML UDC PO PRN (18:30)
[2022-04-30] MEDS ORDERED: LORAZEPAM 0.5 MG TABLET PO PRN (18:30)
[2022-04-30] MEDS ORDERED: ACETAMINOPHEN 325 MG TABLET PO PRN (18:30)
[2022-04-30 18:52] VITALS: BP 139/89
[2022-04-30 20:09] VITALS: BP 132/75
--- NOTE | 2022-04-30 20:32 | NUR ---
RN NOTES : ADMISSION NOTES: ADMITTED THIS 72Y/O FEMALE PATIENT ADMIT FROM [facility]. ADMITTED TO 5150 HOLD , GD, PER HOLD DUE TO SEVER DEPRESSION AND CONCERN FOR CATATONIC , UPON FACE TO FACE ASSESSMENT PATIENT IS A&O X2,3 DEPRESSED,FLAT BLUNTED AFFECT FORGETFUL, DISORGNIZED, DISHELVED, GUARDED ,POOR DECISION MAKING, DENIES SI /HI AT THIS TIME, PT. IS POOR HISTORIAN, POOR INSIGHT ,POOR JUDGEMENT, PT. REFUSED TO SIGNED ADMISSION CONSENT PAPERS, DUE TO DEPRESSED, BOTH MD AWARE AND NOTIFIED OF THE ADMISSION, BELONGINGS CONTRABAND WERE DONE , PT. RIGHTS DISCUSS BY HAM CURER , PROVIDE THE PT. WITH HANDBOOK, AND MEDICATIONS GUIDE, ENVIRONMENTAL SAFETY CHECK DONE, ENCOURAGED PT. VERBALIZED ANY FEELING CONCERN TO STAFF, ORIENT TO UNIT POLICY, NO ACUTE DISTRESS NOTED,VITAL SIGNS WNL ,DENIES ANY PAIN AT THIS TIME,WILL CONTINUE TO MONITOR FOR Q15 SAFETY AND BEHAVIOR.
[2022-04-30] MEDS ORDERED: QUET25TA PO (20:48)
[2022-04-30] MEDS ORDERED: CHOLECALCIFEROL PO (20:48)
[2022-04-30] MEDS ORDERED: DOCU-141 PO (20:48)
[2022-04-30] MEDS ORDERED: DESV50TA PO (20:48)
[2022-04-30] MEDS ORDERED: LAMO100T2 PO (20:48)
[2022-04-30 21:00] VITALS: BP 127/74
[2022-04-30] MEDS ORDERED: DESVENLAFAXINE SUCCINATE PO SCH (21:00)
[2022-04-30] MEDS ORDERED: LamoTRIgine 100 MG TABLET PO SCH (21:00)
[2022-04-30] MEDS ORDERED: QUETIAPINE FUMARATE 25 MG TABLET PO SCH (21:00)
[2022-04-30] MEDS ORDERED: TEMAZEPAM 7.5 MG CAPSULE PO PRN (22:00)
[2022-05-01] MEDS ORDERED: DOCUSATE SODIUM 250 MG CAPSULE PO SCH (06:00)
[2022-05-01 08:00] VITALS: BP 117/75
[2022-05-01 08:07] LABS: ALBUMIN 2.8 g/dL (3.4-5.0); BILIRUBIN,TOTAL 0.5 mg/dL (0.2-1.0); CALCIUM, SERUM 10.3 mg/dL (8.5-10.1); CREATININE 0.7 mg/dL (0.6-1.3); POTASSIUM 4.1 mmol/L (3.5-5.1)
[2022-05-01 08:09] LABS: CHOLESTEROL 169 mg/dL (<200); HDL CHOLESTEROL 46 mg/dL (40-60); LDL 111 mg/dL (0-99); TRIGLYCERIDES 70 mg/dL (30-150)
[2022-05-01] MEDS: CARBIDOPA/LEVODOPA 25/100 MG 1 UDTAB PO SCH ×3 (10:07→16:32)
[2022-05-01] MEDS: CHOLECALCIFEROL 1,000 UNIT TABLET (VIT D3) PO SCH (10:55)
[2022-05-01] MEDS: OXCARBAZEPINE 150 MG TABLET PO SCH ×2 (10:55→16:32)
[2022-05-01] MEDS ORDERED: VENLAFAXINE XR 75 MG CAP.SR.24H PO SCH (13:00)
[2022-05-01 16:00] VITALS: BP 129/69
--- NOTE | 2022-05-01 17:19 | NUR ---
RN-NOTES PATIENT IN BED AWAKE A/O X2,GUARDED,CALM NO ACUTE DISTRESS NOTED.NOTED PATIENT ISOLATIVE IN HER ROOM,ENCOURAGED TO TO PARTICIPATES WITH THE GROUPS BUT PREFERS TO STAY IN THE ROOM AND REST.COMPLIANT WITH MEDICATIONS. AMBULATORY STEADY GAIT.ALL NEEDS ATTENDED AND ANTICIPATED. WILL CONT. MONITORING FOR SAFETY AND BEHAVIOR. WILL ENDORSE TO INCOMING NURSE FOR CONTINUITY OF CARE.
[2022-05-01 20:00] VITALS: BP 136/77
--- NOTE | 2022-05-01 20:24 | NUR ---
RN NOTES: PATIENT RESTING IN HER ROOM, A/OX2 ,PATIENT APPEARS TO BE DEPRESSED, SLOW TO RESPOND QUESTIONS, PASSIVE, FLAT BLUNTED AFFECT GUARDED, FORGETFUL ,DENIED SI/HI AT THIS TIME. NEEDS FREQUENTLY REDIRECTIONS, VERBALIZATION OF FEELINGS ENCOURAGED. SAFETY PRECAUTIONS MAINTAINED. WILL CONTINUE TO MONITOR Q15MIN ROUNDS FOR SAFETY AND BEHAVIOR.
[2022-05-01] MEDS: QUETIAPINE FUMARATE 25 MG TABLET PO SCH (21:13)
[2022-05-02 08:00] VITALS: BP 119/61
--- NOTE | 2022-05-02 08:06 | NUR ---
RIVKA Initial Discharge Plan: Patient currently resides with her sister Trista ([phone]) located at [address] [place], [place] [id number]. RIVKA will contact pt's sister to discuss treatment/discharge plan. RIVKA will work with the MD, treatment team, and family to help coordinate appropriate discharge.
--- NOTE | 2022-05-02 08:06 | NUR ---
RIVKA Clinical Note: Pt placed on a 5150 hold for GD. Pt was brought to the hospital because of her depression. Patient currently resides with her sister Trista ([phone]) located at [address] [place] [address]. SW will contact pt's sister to discuss treatment/discharge plan.
--- NOTE | 2022-05-02 08:07 | NUR ---
Treatment Plan: Pt refused to sign treatment plan due to suspicious of this radio news writer and was blankly staring.
--- NOTE | 2022-05-02 08:08 | NUR ---
RIVKA Family Contact: RIVKA contacted pt sister Trista ([phone]) to discuss pt's discharge and treatment plan. RIVKA left a detailed voicemail.
[2022-05-02] MEDS: CHOLECALCIFEROL 1,000 UNIT TABLET (VIT D3) PO SCH (08:14)
[2022-05-02] MEDS: OXCARBAZEPINE 150 MG TABLET PO SCH ×2 (08:14→16:37)
[2022-05-02] MEDS: CARBIDOPA/LEVODOPA 25/100 MG 1 UDTAB PO SCH ×3 (08:14→16:36)
[2022-05-02] MEDS: DOCUSATE SODIUM 250 MG CAPSULE PO SCH (08:46)
[2022-05-02] MEDS: VENLAFAXINE XR 75 MG CAP.SR.24H PO SCH (12:16)
[2022-05-02 16:00] VITALS: BP 137/83
--- NOTE | 2022-05-02 17:49 | NUR ---
RN-NOTES PATIENT IN BED AWAKE A/O X2,GUARDED,CALM NO ACUTE DISTRESS NOTED.NOTED PATIENT ISOLATIVE IN HER ROOM,ENCOURAGED TO PARTICIPATES WITH THE GROUPS BUT PREFERS TO STAY IN THE ROOM AND REST.COMPLIANT WITH MEDICATIONS.MINIMAL INTERACTIONS WITH STAFF. AMBULATORY STEADY GAIT.ALL NEEDS ATTENDED AND ANTICIPATED. WILL CONT. MONITORING FOR SAFETY AND BEHAVIOR. WILL ENDORSE TO INCOMING NURSE FOR CONTINUITY OF CARE.
[2022-05-02 20:00] VITALS: BP_SYST 130; BP_SYST 139; BP_DIAS 79
--- NOTE | 2022-05-02 20:12 | NUR ---
RN NOTES: PATIENT RESTING IN HER ROOM, PATIENT APPEARS TO BE DEPRESSED, SLOW TO RESPOND QUESTIONS, PASSIVE, FLAT BLUNTED AFFECT GUARDED, FORGETFUL ,DENIED SI/HI AT THIS TIME. MED COMPLIANT ,VERBALIZATION OF FEELINGS ENCOURAGED. SAFETY PRECAUTIONS MAINTAINED. WILL CONTINUE TO MONITOR Q15MIN ROUNDS FOR SAFETY AND BEHAVIOR.
[2022-05-02] MEDS: QUETIAPINE FUMARATE 25 MG TABLET PO SCH (21:23)
[2022-05-03 08:00] VITALS: BP 145/78
[2022-05-03] MEDS: CARBIDOPA/LEVODOPA 25/100 MG 1 UDTAB PO SCH ×3 (08:43→16:01)
[2022-05-03] MEDS: CHOLECALCIFEROL 1,000 UNIT TABLET (VIT D3) PO SCH (08:44)
[2022-05-03] MEDS: DOCUSATE SODIUM 250 MG CAPSULE PO SCH (08:44)
[2022-05-03] MEDS: OXCARBAZEPINE 150 MG TABLET PO SCH ×2 (08:44→16:01)
[2022-05-03] MEDS: ENSURE ENLIVE 237 ML LIQUID (VANILLA) PO SCH ×2 (12:47→16:01)
[2022-05-03] MEDS: VENLAFAXINE XR 75 MG CAP.SR.24H PO SCH (12:47)
[2022-05-03 16:00] VITALS: BP 115/74
[2022-05-03 20:00] VITALS: BP 142/77
--- NOTE | 2022-05-03 20:19 | NUR ---
NURSING NOTES: RECEIVED PATIENT IN BED AWAKE. PATIENT APPEARS DEPRESSED, DISORGANIZED AND GUARDED. DENIES SI/HI. WILL CONTINUE TO MONITOR FOR SAFETY AND BEHAVIOR.
[2022-05-03] MEDS: QUETIAPINE FUMARATE 25 MG TABLET PO SCH (21:22)
[2022-05-04 08:00] VITALS: BP 115/58
[2022-05-04] MEDS: ENSURE ENLIVE 237 ML LIQUID (VANILLA) PO SCH ×3 (08:27→16:18)
[2022-05-04] MEDS: CARBIDOPA/LEVODOPA 25/100 MG 1 UDTAB PO SCH ×3 (08:29→16:20)
[2022-05-04] MEDS: CHOLECALCIFEROL 1,000 UNIT TABLET (VIT D3) PO SCH (08:29)
[2022-05-04] MEDS: OXCARBAZEPINE 150 MG TABLET PO SCH ×2 (08:29→16:19)
[2022-05-04] MEDS: DOCUSATE SODIUM 250 MG CAPSULE PO SCH (08:29)
[2022-05-04] MEDS: VENLAFAXINE XR 75 MG CAP.SR.24H PO SCH (12:51)
[2022-05-04 16:00] VITALS: BP 134/71
[2022-05-04 20:36] VITALS: BP 138/78
[2022-05-04] MEDS: QUETIAPINE FUMARATE 25 MG TABLET PO SCH (21:49)
[2022-05-05 08:00] VITALS: BP_SYST 109; BP_SYST 145; BP_SYST 150; BP_DIAS 67; BP_DIAS 85
[2022-05-05] MEDS: CHOLECALCIFEROL 1,000 UNIT TABLET (VIT D3) PO SCH (08:22)
[2022-05-05] MEDS: ENSURE ENLIVE 237 ML LIQUID (VANILLA) PO SCH ×3 (08:22→16:43)
[2022-05-05] MEDS: OXCARBAZEPINE 150 MG TABLET PO SCH ×2 (08:23→16:43)
[2022-05-05] MEDS: DOCUSATE SODIUM 250 MG CAPSULE PO SCH (08:23)
[2022-05-05] MEDS: CARBIDOPA/LEVODOPA 25/100 MG 1 UDTAB PO SCH ×3 (08:23→16:43)
[2022-05-05 11:34] LABS: ALBUMIN 3.3 g/dL (3.4-5.0); BILIRUBIN,TOTAL 0.5 mg/dL (0.2-1.0); CALCIUM, SERUM 10.9 mg/dL (8.5-10.1); CREATININE 0.6 mg/dL (0.6-1.3); POTASSIUM 4.1 mmol/L (3.5-5.1)
[2022-05-05] MEDS: VENLAFAXINE XR 75 MG CAP.SR.24H PO SCH (12:05)
--- NOTE | 2022-05-05 12:30 | NUR ---
NURSE NOTE: GLASSES GIVEN TO PT SO THAT SHE CAN READ.
--- NOTE | 2022-05-05 13:53 | NUR ---
Kiln Stoker: SW contacted pt's disease case manager Senait ([phone]) who stated that pt cannot return back to sister because sister is unable to care of pt. salvage worker stated pt would need to go to a nursing facility because sister and brother in law are not in the greatest health condition.
--- NOTE | 2022-05-05 19:20 | NUR ---
RN OPEN NOTE: PT RESTING IN HER ROOM. BREATHING EVEN AND UNLABORED. PT APPEARS DEPRESSED, FLAT AFFECT, GUARDED, FORGETFUL AT TIMES,DENIED SI/HI AT THIS TIME. PT IN STABLE CONDITION AT THIS TIME, DENIES PAIN OR DISCOMFORT. WILL CONTINUE TO MONITOR FOR SAFETY AND BEHAVIOR.
[2022-05-05 21:17] VITALS: BP 154/76
[2022-05-05] MEDS: QUETIAPINE FUMARATE 25 MG TABLET PO SCH (21:28)
--- NOTE | 2022-05-06 06:14 | NUR ---
CLOSING NOTE: PT IS SLEEPING IN HER BED IN ROOM. BREATHING EVEN AND UNLABORED. PT IN STABLE CONDITION AT THIS TIME, DENIES PAIN OR DISCOMFORT. WILL CONTINUE TO MONITOR FOR SAFETY AND BEHAVIOR.
--- NOTE | 2022-05-06 07:47 | NUR ---
GPS RN NOTE PT IS AWAKE IN HER BED IN ROOM. BREATHING EVEN AND UNLABORED. PT IN STABLE CONDITION AT THIS TIME, DENIES PAIN OR DISCOMFORT. WILL CONTINUE TO MONITOR FOR SAFETY AND BEHAVIOR.HAVING BREAKFAST
[2022-05-06 08:00] VITALS: BP 134/73
[2022-05-06] MEDS: CARBIDOPA/LEVODOPA 25/100 MG 1 UDTAB PO SCH ×3 (08:45→16:17)
[2022-05-06] MEDS: CHOLECALCIFEROL 1,000 UNIT TABLET (VIT D3) PO SCH (08:46)
[2022-05-06] MEDS: OXCARBAZEPINE 150 MG TABLET PO SCH ×2 (08:46→16:18)
[2022-05-06] MEDS: ENSURE ENLIVE 237 ML LIQUID (VANILLA) PO SCH ×3 (08:47→17:00)
[2022-05-06] MEDS: DOCUSATE SODIUM 250 MG CAPSULE PO SCH (08:47)
--- NOTE | 2022-05-06 09:53 | NUR ---
Court Notification: SW attempted to contact pt's sister Trista ([phone]) to notify of pt's 9173 hearing and left a voicemail.
--- NOTE | 2022-05-06 09:54 | NUR ---
Court Hearing: Patient's court hearing for 0940 was today and it was upheld for GD.
--- NOTE | 2022-05-06 10:58 | NUR ---
GPR RN NOTE . PATIENT IN DINNING ROOM WATCHING TV, NOT IN DISTRESS
[2022-05-06] MEDS: VENLAFAXINE XR 75 MG CAP.SR.24H PO SCH (12:04)
[2022-05-06 16:00] VITALS: BP 141/75
--- NOTE | 2022-05-06 17:42 | NUR ---
GPS RN NOTE PATIENT HAVING DINNER IN ROOM, COOPERATIVE ,ABLE TO EAT SELF , ALL NEEDS ATTENDED
--- NOTE | 2022-05-06 18:50 | NUR ---
gps rn note patient in her room, resting comfortably at this time, not in distress , will cont to monitor
[2022-05-06 20:36] VITALS: BP 133/71
[2022-05-06] MEDS: QUETIAPINE FUMARATE 25 MG TABLET PO SCH (21:00)
[2022-05-07 08:00] VITALS: BP 116/71
[2022-05-07] MEDS: OXCARBAZEPINE 150 MG TABLET PO SCH ×2 (08:17→17:00)
[2022-05-07] MEDS: CHOLECALCIFEROL 1,000 UNIT TABLET (VIT D3) PO SCH (08:17)
[2022-05-07] MEDS: CARBIDOPA/LEVODOPA 25/100 MG 1 UDTAB PO SCH ×3 (08:18→17:00)
[2022-05-07] MEDS: ENSURE ENLIVE 237 ML LIQUID (VANILLA) PO SCH ×3 (08:18→17:01)
[2022-05-07] MEDS: DOCUSATE SODIUM 250 MG CAPSULE PO SCH (08:18)
--- NOTE | 2022-05-07 11:00 | NUR ---
NURSE NOTE: PT C/O STOMACH ACHE. MAALOX PO ADMINISTERED ORDERED. PT ALLISON WELL. WILL CONT TO MONITOR.
--- NOTE | 2022-05-07 12:00 | NUR ---
NURSE NOTE: PT STATED THAT HER STOMACH IS DOING BETTER. NO MORE PAIN. MAALOX EFFECTIVE AT THIS TIME. WILL CONT TO MONITOR.
[2022-05-07] MEDS: VENLAFAXINE XR 75 MG CAP.SR.24H PO SCH (13:30)
--- NOTE | 2022-05-07 14:27 | NUR ---
RIVKA SNF Referral: RIVKA sent referral packet to Mari sesay from [facility] ([phone]) for placement. RIVKA sent H & P, progress notes, and medication list.
[2022-05-07 16:00] VITALS: BP 145/77
[2022-05-07 19:59] VITALS: BP 112/62
[2022-05-07] MEDS: QUETIAPINE FUMARATE 25 MG TABLET PO SCH (21:24)
[2022-05-08 08:00] VITALS: BP 105/63
[2022-05-08] MEDS: OXCARBAZEPINE 150 MG TABLET PO SCH ×2 (08:26→16:09)
[2022-05-08] MEDS: DOCUSATE SODIUM 250 MG CAPSULE PO SCH (08:26)
[2022-05-08] MEDS: CARBIDOPA/LEVODOPA 25/100 MG 1 UDTAB PO SCH ×3 (08:26→16:09)
[2022-05-08] MEDS: CHOLECALCIFEROL 1,000 UNIT TABLET (VIT D3) PO SCH (08:26)
[2022-05-08] MEDS: ENSURE ENLIVE 237 ML LIQUID (VANILLA) PO SCH ×3 (08:29→16:09)
--- NOTE | 2022-05-08 09:11 | NUR ---
RIVKA SNF Referral: RIVKA sent clinicals to [facility] ([phone]) ligia Jones for placement. RIVKA sent H & P, progress notes, and medication list.
--- NOTE | 2022-05-08 09:13 | NUR ---
RIVKA SNF Contact: RIVKA spoke with Mari sesay from [facility] ([phone]) who stated that pt not accepted because she does not have dementia.
[2022-05-08] MEDS: VENLAFAXINE XR 75 MG CAP.SR.24H PO SCH (12:32)
--- NOTE | 2022-05-08 12:47 | NUR ---
RIVKA SNF Contact: RIVKA spoke with [facility] ([phone]) ligia Jones who stated pt is accepted.
[2022-05-08 16:00] VITALS: BP 111/65
--- NOTE | 2022-05-08 19:30 | NUR ---
GPS RN NOTE, RECEIVED PATIENT AWAKE AND IN BED, NO S/S OR COMPLAINTS OF PAIN AT THIS TIME. PATIENT IS DISPLAYING NO S/S OF APPARENT DISTRESS AT THIS TIME. PATIENT BREATHING IS UNLABORED WITH EQUAL RISE AND FALL OF THE CHEST. PATIENT IS ALERT AND ORIENTED X 2 ON ROOM AIR WITH A SPO2 98%. PATIENT IS COMPLIANT WITH MEDICATIONS, DEPRESSED, ISOLATIVE, POLITE, AND COOPERATIVE. PATIENT DENIES SUICIDAL AND HOMICIDAL IDEATIONS AT THIS TIME. PATIENT ASSISTED WITH TURNING AND REPOSITIONING Q2HR AND PRN FOR COMFORT AND CIRCULATION. PATIENT HAS NO NEEDS AT THIS TIME. PATIENT EDUCATED ON THE USE OF THE CALL MUKHERJEE. PATIENT BED SIDE RAILS UP X 2 FOR SAFETY. PATIENT BED IS LOCKED, LOW, WITH BED ALARM ON. WILL CONTINUE TO MONITOR THIS PATIENT Q15 MINUTES WITH THE HELP OF STAFF TO MAINTAIN SAFETY.
[2022-05-08 20:01] VITALS: BP 116/66
[2022-05-08] MEDS: QUETIAPINE FUMARATE 25 MG TABLET PO SCH (21:38)
[2022-05-09 08:00] VITALS: BP 103/64
[2022-05-09] MEDS: CHOLECALCIFEROL 1,000 UNIT TABLET (VIT D3) PO SCH (08:43)
[2022-05-09] MEDS: CARBIDOPA/LEVODOPA 25/100 MG 1 UDTAB PO SCH ×3 (08:43→16:17)
[2022-05-09] MEDS: OXCARBAZEPINE 150 MG TABLET PO SCH ×2 (08:43→16:17)
[2022-05-09] MEDS: DOCUSATE SODIUM 250 MG CAPSULE PO SCH (08:43)
[2022-05-09] MEDS: ENSURE ENLIVE 237 ML LIQUID (VANILLA) PO SCH ×3 (08:43→17:26)
--- NOTE | 2022-05-09 09:15 | NUR ---
RN Notes: Received pt. awake in bed, interacts minimally. Pt. prompted to eat breakfast and ate 50% and compliant on meds. Encouraged to verbalize feelings. motivated to attend group activity and encouraged to take shower. Needs attended and will continue to monitor for safety.
[2022-05-09] MEDS: VENLAFAXINE XR 75 MG CAP.SR.24H PO SCH (12:01)
[2022-05-09 16:00] VITALS: BP 116/71
--- NOTE | 2022-05-09 19:30 | NUR ---
GPS RN NOTE, RECEIVED PATIENT AWAKE AND IN BED, NO S/S OR COMPLAINTS OF PAIN AT THIS TIME. PATIENT IS DISPLAYING NO S/S OF APPARENT DISTRESS AT THIS TIME. PATIENT BREATHING IS UNLABORED WITH EQUAL RISE AND FALL OF THE CHEST. PATIENT IS ALERT AND ORIENTED X 2 ON ROOM AIR WITH A SPO2 96%. PATIENT IS COMPLIANT WITH MEDICATIONS, DEPRESSED, ISOLATIVE, POLITE, AND COOPERATIVE. PATIENT DENIES SUICIDAL AND HOMICIDAL IDEATIONS AT THIS TIME. PATIENT ASSISTED WITH TURNING AND REPOSITIONING Q2HR AND PRN FOR COMFORT AND CIRCULATION. PATIENT HAS NO NEEDS AT THIS TIME. PATIENT EDUCATED ON THE USE OF THE CALL MUKHERJEE. PATIENT BED SIDE RAILS UP X 2 FOR SAFETY. PATIENT BED IS LOCKED, LOW, WITH BED ALARM ON. WILL CONTINUE TO MONITOR THIS PATIENT Q15 MINUTES WITH THE HELP OF STAFF TO MAINTAIN SAFETY.
[2022-05-09 20:00] VITALS: BP 116/67
[2022-05-09] MEDS: QUETIAPINE FUMARATE 25 MG TABLET PO SCH (21:26)
[2022-05-10 08:00] VITALS: BP 109/60
[2022-05-10] MEDS: CHOLECALCIFEROL 1,000 UNIT TABLET (VIT D3) PO SCH (08:07)
[2022-05-10] MEDS: OXCARBAZEPINE 150 MG TABLET PO SCH ×2 (08:07→17:19)
[2022-05-10] MEDS: ENSURE ENLIVE 237 ML LIQUID (VANILLA) PO SCH ×3 (08:07→17:19)
[2022-05-10] MEDS: DOCUSATE SODIUM 250 MG CAPSULE PO SCH (08:07)
[2022-05-10] MEDS: CARBIDOPA/LEVODOPA 25/100 MG 1 UDTAB PO SCH ×4 (08:07→17:19)
--- NOTE | 2022-05-10 09:35 | NUR ---
RN Notes: Received pt. awake in bed, quiet and interacts minimally. Pt.at 100% for breakfast and assisted minimally by staffs and compliant on meds. Pt. is very pleasant, isolates in the room and quiet. Encouraged to verbalize feelings and encouraged to take shower. Needs attended and will continue to monitor for safety.
[2022-05-10] MEDS: VENLAFAXINE XR 75 MG CAP.SR.24H PO SCH (12:08)
--- NOTE | 2022-05-10 13:18 | NUR ---
Dr. Alvarenga gave a new order for the Sinemet
--- NOTE | 2022-05-10 14:47 | NUR ---
Sinemet order not given for 1400. last dose was scheduled for 1300 and given.
[2022-05-10 16:02] VITALS: BP 130/69
[2022-05-10 20:00] VITALS: BP 137/69
[2022-05-10] MEDS: QUETIAPINE FUMARATE 25 MG TABLET PO SCH (21:12)
[2022-05-11] MEDS: CARBIDOPA/LEVODOPA 25/100 MG 1 UDTAB PO SCH ×5 (06:10→17:04)
[2022-05-11 08:00] VITALS: BP 113/63
[2022-05-11] MEDS: ENSURE ENLIVE 237 ML LIQUID (VANILLA) PO SCH ×3 (08:44→16:22)
[2022-05-11] MEDS: CHOLECALCIFEROL 1,000 UNIT TABLET (VIT D3) PO SCH (08:44)
[2022-05-11] MEDS: DOCUSATE SODIUM 250 MG CAPSULE PO SCH (08:45)
[2022-05-11] MEDS: OXCARBAZEPINE 150 MG TABLET PO SCH ×2 (08:45→17:04)
--- NOTE | 2022-05-11 10:18 | NUR ---
RN-CO: Reeceived patient awake, denied pain and discomforts.Her affect is flat, she is not hyperverbal anymore, she looks more depressed however it might be the side effct of the parkinson's medication she is taking. She ate her breakfast with the help of staff. Her vital signs are normal, no s/s of distress. We will continue to monitor.
--- NOTE | 2022-05-11 10:32 | NUR ---
RN-CO: [facility] IS OUT OF STOCK, CALLED PHARMACY TO REFILL,
--- NOTE | 2022-05-11 11:08 | NUR ---
RN-CO: [facility] , STILL OUT OF STOCK.
[2022-05-11] MEDS: VENLAFAXINE XR 75 MG CAP.SR.24H PO SCH (12:58)
[2022-05-11 16:00] VITALS: BP 105/53
[2022-05-11 20:43] VITALS: BP 150/86
--- NOTE | 2022-05-11 21:10 | NUR ---
RN Note Received patient sleeping in bed, quiet and minimally interactive. Patient is compliant with meds. Pt. is very pleasant, isolates in the room. Encouraged to verbalize feelings. Needs attended, and will continue to monitor pt for safety.
[2022-05-11] MEDS: QUETIAPINE FUMARATE 25 MG TABLET PO SCH (21:50)
[2022-05-12] MEDS: CARBIDOPA/LEVODOPA 25/100 MG 1 UDTAB PO SCH ×4 (05:25→17:27)
--- NOTE | 2022-05-12 06:59 | NUR ---
RN NOTE LEFT PT IN BED, STILL SLEEPING. PT IN STABLE CONDITION. NO C/O PAIN OR DISCOMFORT, NO ACUTE DISTRESS NOTED. WILL ENDORSE TO AM SHIFT RN FOR CONTINUITY OF CARE.
[2022-05-12] MEDS: ENSURE ENLIVE 237 ML LIQUID (VANILLA) PO SCH ×3 (07:54→16:10)
[2022-05-12 08:00] VITALS: BP 120/63
[2022-05-12] MEDS: DOCUSATE SODIUM 250 MG CAPSULE PO SCH (08:16)
[2022-05-12] MEDS: OXCARBAZEPINE 150 MG TABLET PO SCH ×3 (08:16→16:23)
[2022-05-12] MEDS: CHOLECALCIFEROL 1,000 UNIT TABLET (VIT D3) PO SCH (08:16)
--- NOTE | 2022-05-12 08:45 | NUR ---
RN-CO: Patient was seen and examined by Dr Wilson with no new order.
--- NOTE | 2022-05-12 11:15 | NUR ---
RN-CO: Dr Grissom seen and examined the patient with new orders noted and carried out.
[2022-05-12] MEDS: VENLAFAXINE XR 75 MG CAP.SR.24H PO SCH (12:31)
[2022-05-12 12:53] LABS: BASOPHILS % (AUTO) 0.4 % (0.0-2.0); EOSINOPHILS % (AUTO) 0.5 % (0.0-6.0); HEMATOCRIT 42 % (33-45); HEMOGLOBIN 13.9 g/dL (11.5-14.8); LYMPHOCYTES # (AUTO) 0.9 K/uL (0.8-4.8); LYMPHOCYTES % (AUTO) 10.9 % (20.0-44.0); MEAN CORPUSCULAR HGB CONC 33 g/dl (31.0-36.0); MEAN CORPUSCULAR VOLUME 97 fL (82-100); MONOCYTES # (AUTO) 0.5 K/uL (0.1-1.30); MONOCYTES % (AUTO) 6.5 % (2.0-12.0); NEUTROPHILS # (AUTO) 6.6 K/uL (1.8-8.9); NEUTROPHILS % (AUTO) 81.7 % (43.0-81.0); PLATELET COUNT (AUTO) 264 K/uL (150-450); RED BLOOD CELL COUNT(AUTO) 4.31 MIL/uL (4.0-5.2); WHITE BLOOD COUNT (AUTO) 8.1 K/uL (4.3-11.0)
[2022-05-12 13:10] LABS: ALBUMIN 3.1 g/dL (3.4-5.0); BILIRUBIN,TOTAL 0.3 mg/dL (0.2-1.0); CALCIUM, SERUM 10.9 mg/dL (8.5-10.1); CREATININE 0.8 mg/dL (0.6-1.3); TOTAL PROTEIN, SERUM 6.9 g/dL (6.4-8.2)
--- NOTE | 2022-05-12 13:17 | NUR ---
RN-CO: Encouraged fluid intake and to drink Ensure.
[2022-05-12 16:00] VITALS: BP 137/66
--- NOTE | 2022-05-12 16:36 | NUR ---
RN-CO: Patient encouraged to ventilate feelings, denied pain and discomforts. Served a cup of water.
--- NOTE | 2022-05-12 17:00 | NUR ---
RN-CO: Patient was seen and examined by Dr Nickerson( neurologist) with order to increase the Sinemet to 2 tabs , same frequency. Noted and carried out.
--- NOTE | 2022-05-12 18:23 | NUR ---
RN-CO: MOM given for not having a bowel movement since May 09.
[2022-05-12 19:40] VITALS: BP 126/69
[2022-05-12] MEDS: QUETIAPINE FUMARATE 100 MG TABLET PO SCH (21:17)
[2022-05-13] MEDS: CARBIDOPA/LEVODOPA 25/100 MG 1 UDTAB PO SCH ×4 (06:11→17:26)
[2022-05-13 08:00] VITALS: BP 101/52
--- NOTE | 2022-05-13 08:00 | NUR ---
RN Notes: Patient in bed asleep but easily arouses to sound. Patient is alert, oriented x 2. No c/o pain or discomfort at this time. No SI/HI noted form the patient at this time. Will continue to monitor patient throughout shift.
[2022-05-13] MEDS: ENSURE ENLIVE 237 ML LIQUID (VANILLA) PO SCH ×3 (08:13→17:26)
[2022-05-13] MEDS: OXCARBAZEPINE 150 MG TABLET PO SCH ×3 (08:58→16:35)
[2022-05-13] MEDS: DOCUSATE SODIUM 250 MG CAPSULE PO SCH (08:58)
[2022-05-13] MEDS: CHOLECALCIFEROL 1,000 UNIT TABLET (VIT D3) PO SCH (08:58)
[2022-05-13] MEDS: VENLAFAXINE XR 75 MG CAP.SR.24H PO SCH (12:11)
[2022-05-13 16:03] VITALS: BP 117/64
--- NOTE | 2022-05-13 18:21 | NUR ---
RN Closing Notes: Patient lying comfortably in bed in no apparent distress. Patient has no c/o pain or discomfort at this time. Patient has been stable the entire shift, no SI/HI noted. Will endorse to next shift nurse for continuity of care.
[2022-05-13 20:59] VITALS: BP 118/65
[2022-05-13] MEDS: QUETIAPINE FUMARATE 100 MG TABLET PO SCH (22:00)
[2022-05-14] MEDS ORDERED: NICO-676 TP (03:21)
--- NOTE | 2022-05-14 03:33 | NUR ---
RN note: Patient noted still awake at this time,offered pills to help her fall asleep but refuses.Patient was given 1 jello and milk and well tolerated.
[2022-05-14] MEDS: CARBIDOPA/LEVODOPA 25/100 MG 1 UDTAB PO SCH ×4 (06:07→17:02)
[2022-05-14 08:00] VITALS: BP 118/74
[2022-05-14] MEDS: CHOLECALCIFEROL 1,000 UNIT TABLET (VIT D3) PO SCH (08:21)
[2022-05-14] MEDS: DOCUSATE SODIUM 250 MG CAPSULE PO SCH (08:21)
[2022-05-14] MEDS: OXCARBAZEPINE 150 MG TABLET PO SCH ×3 (08:21→16:14)
[2022-05-14] MEDS: ENSURE ENLIVE 237 ML LIQUID (VANILLA) PO SCH ×3 (08:36→16:09)
[2022-05-14] MEDS: VENLAFAXINE XR 75 MG CAP.SR.24H PO SCH (12:14)
[2022-05-14 16:00] VITALS: BP 100/55
[2022-05-14] MEDS ORDERED: VENLAFAXINE XR 75 MG CAP.SR.24H PO SCH (17:00)
[2022-05-14 20:07] VITALS: BP 154/90
[2022-05-14] MEDS ORDERED: QUETIAPINE FUMARATE 25 MG TABLET PO SCH (22:00)
[2022-05-15] MEDS: CARBIDOPA/LEVODOPA 25/100 MG 1 UDTAB PO SCH ×2 (05:19→10:07)
[2022-05-15 08:00] VITALS: BP 142/66
--- NOTE | 2022-05-15 08:02 | NUR ---
Discharge Note: Patient will be discharged to [facility], [place] [address]; ). Please arrange transportation at 1PM. Clinical Education Consultant spoke with Karen veterinary parasitologist at [facility]; ([phone]), who stated patient will be accepted today. SW contacted pts sister Trista ([phone]) and left a detailed voicemail. Patients ed case manager Senait ([phone]) is aware and agreeable. Patient is alert and oriented x2 and is unable to plan for self-care. Patient denies any suicidal or homicidal ideations. Patient is aware and agreeable with discharge plans. Patient will continue to follow-up with (psychiatrist) Dr. Grissom [address] [facility] [address], [place] [address]; ([phone]) and (machine operator) Dr. Wilson [address] [facility] [address], [place] [address]; ([phone]). Patient presents with euthymic and congruent mood.
[2022-05-15] MEDS: ENSURE ENLIVE 237 ML LIQUID (VANILLA) PO SCH ×2 (08:05→12:04)
[2022-05-15] MEDS: OXCARBAZEPINE 150 MG TABLET PO SCH ×2 (08:06→12:05)
[2022-05-15] MEDS: DOCUSATE SODIUM 250 MG CAPSULE PO SCH (08:07)
[2022-05-15] MEDS: CHOLECALCIFEROL 1,000 UNIT TABLET (VIT D3) PO SCH (08:07)
--- NOTE | 2022-05-15 10:02 | NUR ---
RN-NOTES RECEIVED T.O DISCHARGE ORDER FROM DR. BEAVERS. NOTED AND CARRIED OUT.
[2022-05-15] MEDS: VENLAFAXINE XR 75 MG CAP.SR.24H PO SCH (12:06)
--- NOTE | 2022-05-15 13:23 | NUR ---
RN-DISCHARGE NOTES PATIENT WAS DISCHARGE TO [facility]. PATIENT LEFT THE UNIT IN STABLE CONDITION A/O X2 AMBULATORY STEADY GAIT. PATIENT DID NOT VERBALIZE SI/HI,DENIES VISUAL/AUDITORY HALLUCINATIONS AT THE TIME OF DISCHARGE. MANAGER CUST[employer]S MCCOLLUM MEDICALLY CLEARED PATIENT . REPORT WAS GIVEN TO MEGAN ( FACILITY POULTRY TRIMMER STAFF). ALL BELONGINGS WAS GIVEN BACK TO THE PATIENT INCLUDING WHITNEY OF $30.00, X1 BLACK CELL PHONE AND OTHER STAFF. PER NOTES, PATIENT 'S SISTER SARAH WAS MADE AWARE OF THE DISCHARGE.
== END 2022-05-15 13:25 | DRG 885 ==
LOC: GPS 17:48
PROVIDERS: ADMIT Psychiatry & Neurology Psychosomatic Medicine; ATTEND Nurse Practitioner Family
DX: F25.0 Schizoaffective disorder, bipolar type (principal); E87.1 Hypo-osmolality and hyponatremia; E44.0 Moderate protein-calorie malnutrition; F32.A Depression, unspecified; G20 Parkinson's disease; J45.909 Unspecified asthma, uncomplicated; Z20.822 Contact with and (suspected) exposure to COVID-19; F29 Unspecified psychosis not due to a substance or known physiological condition; Z91.199 Patient's noncompliance with other medical treatment and regimen due to unspecified reason; Z91.14 Patient's other noncompliance with medication regimen; Z88.8 Allergy status to other drugs, medicaments and biological substances; Z73.6 Limitation of activities due to disability; I10 Essential (primary) hypertension; E78.5 Hyperlipidemia, unspecified; Z85.42 Personal history of malignant neoplasm of other parts of uterus; Z90.710 Acquired absence of both cervix and uterus; E88.09 Other disorders of plasma-protein metabolism, not elsewhere classified; Z87.891 Personal history of nicotine dependence; F02.80 Dementia in other diseases classified elsewhere, unspecified severity, without behavioral disturbance, psychotic disturbance, mood disturbance, and anxiety
CPT/HCPCS: 36415; 70450-TC; 80048-TC; 80053-TC; 80061-TC; 85025-TC; 87081-TC

== ENCOUNTER 2022-07-14 22:18 | Inpatient (IN) | payer MEDICARE ==
[~2022-07-14] VITALS: Ht 170.2 cm; Wt 61.2 kg
[~2022-07-14 22:18] MED LIST changes: +CHOLECALCIFEROL PO; +DESV50TA PO; +DOCU-141 PO; +LAMO100T2 PO; +NICO-676 TP; +QUET25TA PO
[2022-07-14 23:55] LABS: BILIRUBIN,URINE NEGATIVE (NEGATIVE); COLOR,URINE DARK YELLOW (YELLOW); LEUKOCYTE ESTERASE ,URINE TRACE (NEGATIVE); NITRITE, URINE NEGATIVE (NEGATIVE); PROTEIN,URINE NEGATIVE (NEGATIVE); UGLUCOSE NEGATIVE (NEGATIVE); UROBILINOGEN,URINE 0.2 EU/dL (0.2)
[2022-07-14 23:57] LABS: BACTERIA,URINE Few /HPF (None Seen); HYALINE CASTS, URINE Few /LPF (None Seen); RBC,URINE 0-2 /HPF (0-2); SQUAMOUS EPITHELIAL CELL,UR Many /HPF (None Seen); WBC,URINE 0-2 /HPF (0-3)
[2022-07-15 00:06] LABS: BASOPHILS % (AUTO) 0.2 % (0.0-2.0); EOSINOPHILS % (AUTO) 0.5 % (0.0-6.0); HEMATOCRIT 39 % (33-45); HEMOGLOBIN 12.8 g/dL (11.5-14.8); MEAN CORPUSCULAR HGB CONC 32 g/dl (31.0-36.0); MEAN CORPUSCULAR VOLUME 100 fL (82-100); MONOCYTES # (AUTO) 1.2 K/uL (0.1-1.30); MONOCYTES % (AUTO) 10.2 % (2.0-12.0); NEUTROPHILS # (AUTO) 8.3 K/uL (1.8-8.9); NEUTROPHILS % (AUTO) 72.1 % (43.0-81.0); PLATELET COUNT (AUTO) 306 K/uL (150-450); RED BLOOD CELL COUNT(AUTO) 3.96 MIL/uL (4.0-5.2); WHITE BLOOD COUNT (AUTO) 11.5 K/uL (4.3-11.0)
[2022-07-15 00:11] LABS: CALCIUM, SERUM 11.2 mg/dL (8.5-10.1); CARBON DIOXIDE 25 mmol/L (21-32); CHLORIDE 105 mmol/L (98-107); CREATININE 0.8 mg/dL (0.6-1.3); GLUCOSE 93 mg/dL (74-106); POTASSIUM 4.7 mmol/L (3.5-5.1); SODIUM SERUM 137 mmol/L (136-145); UREA NITROGEN, BLOOD 18 mg/dL (7-18)
[2022-07-15 00:25] LABS: ACETAMINOPHEN 0 ug/ml (10-30); ALANINE AMINOTRANSFERASE 21 U/L (12-78); ALBUMIN 3.5 g/dL (3.4-5.0); ALCOHOL, BLOOD < 3 mg/dL (0-0); ALKALINE PHOSPHATASE 136 U/L (46-116); ASPARTATE AMINOTRANSFERASE 24 U/L (15-37); BILIRUBIN,DIRECT 0.1 mg/dL (0.0-0.2); BILIRUBIN,TOTAL 0.5 mg/dL (0.2-1.0); TOTAL PROTEIN, SERUM 7.5 g/dL (6.4-8.2)
[2022-07-15] MEDS ORDERED: CARB25TA3 PO (08:10)
[2022-07-15] MEDS ORDERED: OXCA300T15 PO (08:10)
[2022-07-15] MEDS ORDERED: CHOL100043 PO (08:10)
[2022-07-15] MEDS ORDERED: DOCU250C14 PO (08:10)
[2022-07-15] MEDS ORDERED: BISA10SU11 RC (08:10)
[2022-07-15] MEDS ORDERED: NA P133E RC (08:10)
[2022-07-15] MEDS ORDERED: TEMA7.5C12 PO (08:10)
[2022-07-15] MEDS ORDERED: MAGN400O6 PO (08:10)
[2022-07-15] MEDS ORDERED: TYL2T PO (08:10)
[2022-07-15] MEDS ORDERED: ACET-868 PO (08:10)
[2022-07-15] MEDS ORDERED: QUETIAPINE FUMARATE 25 MG TABLET ONE (12:40)
[2022-07-15] MEDS: QUETIAPINE FUMARATE 25 MG TABLET PO SCH ×3 (12:46→16:56)
[2022-07-15] MEDS ORDERED: OXCARBAZEPINE 150 MG TABLET PO SCH (13:30)
[2022-07-15] MEDS: BENZTROPINE MESYLATE (1 MG) 1 MG TABLET PO SCH ×3 (13:54→16:56)
[2022-07-15] MEDS ORDERED: BISACODYL SUPP (10 MG) 10 MG/SUPP.RECT SUPP.RECT RC PRN (15:00)
[2022-07-15] MEDS ORDERED: NA PHOS,M-B/NA PHOS,DI-BA 1 EA ENEMA RC PRN (15:00)
[2022-07-15] MEDS ORDERED: ACETAMINOPHEN 325 MG TABLET PO PRN (15:00)
[2022-07-15] MEDS ORDERED: MAGNESIUM HYDROXIDE 30 ML UDC PO PRN (15:00)
[2022-07-15 16:00] VITALS: BP 153/80
[2022-07-15] MEDS: OXCARBAZEPINE 150 MG TABLET PO SCH ×2 (16:41→16:57)
[2022-07-15] MEDS ORDERED: CARBIDOPA 25 MG TABLET PO SCH (17:00)
[2022-07-15 21:32] VITALS: BP 136/70
[2022-07-16 08:00] VITALS: BP 136/66
[2022-07-16] MEDS: DOCUSATE SODIUM 250 MG CAPSULE PO SCH (08:43)
[2022-07-16] MEDS: BENZTROPINE MESYLATE (1 MG) 1 MG TABLET PO SCH ×3 (08:43→16:43)
[2022-07-16] MEDS: OXCARBAZEPINE 150 MG TABLET PO SCH ×2 (08:44→16:43)
[2022-07-16] MEDS: QUETIAPINE FUMARATE 25 MG TABLET PO SCH ×3 (08:44→16:43)
[2022-07-16] MEDS: CARBIDOPA 25 MG TABLET PO SCH ×3 (09:00→17:00)
[2022-07-16 16:00] VITALS: BP 136/73
[2022-07-16 21:13] VITALS: BP 145/76
[2022-07-17 08:00] VITALS: BP 123/75
[2022-07-17] MEDS: BENZTROPINE MESYLATE (1 MG) 1 MG TABLET PO SCH ×3 (08:48→16:54)
[2022-07-17] MEDS: DOCUSATE SODIUM 250 MG CAPSULE PO SCH (08:49)
[2022-07-17] MEDS: QUETIAPINE FUMARATE 25 MG TABLET PO SCH ×3 (08:49→20:56)
[2022-07-17] MEDS: OXCARBAZEPINE 150 MG TABLET PO SCH ×2 (08:49→16:53)
[2022-07-17] MEDS: CARBIDOPA 25 MG TABLET PO SCH ×2 (09:00→13:17)
[2022-07-17] MEDS: LORAZEPAM 1 MG TABLET PO PRN (11:04)
[2022-07-17 16:00] VITALS: BP 124/75
[2022-07-17 16:04] LABS: BASOPHILS % (AUTO) 0.4 % (0.0-2.0); EOSINOPHILS % (AUTO) 1.7 % (0.0-6.0); HEMATOCRIT 39 % (33-45); HEMOGLOBIN 12.8 g/dL (11.5-14.8); LYMPHOCYTES # (AUTO) 1.5 K/uL (0.8-4.8); LYMPHOCYTES % (AUTO) 17.3 % (20.0-44.0); MEAN CORPUSCULAR HGB CONC 33 g/dl (31.0-36.0); MEAN CORPUSCULAR VOLUME 98 fL (82-100); MONOCYTES # (AUTO) 0.8 K/uL (0.1-1.30); MONOCYTES % (AUTO) 9.2 % (2.0-12.0); NEUTROPHILS # (AUTO) 6.1 K/uL (1.8-8.9); NEUTROPHILS % (AUTO) 71.4 % (43.0-81.0); PLATELET COUNT (AUTO) 277 K/uL (150-450); RED BLOOD CELL COUNT(AUTO) 3.98 MIL/uL (4.0-5.2); WHITE BLOOD COUNT (AUTO) 8.5 K/uL (4.3-11.0)
[2022-07-17 16:19] LABS: ALBUMIN 3.2 g/dL (3.4-5.0); BILIRUBIN,TOTAL 0.3 mg/dL (0.2-1.0); CALCIUM, SERUM 10.6 mg/dL (8.5-10.1); CREATININE 0.8 mg/dL (0.6-1.3); POTASSIUM 4.1 mmol/L (3.5-5.1)
[2022-07-17] MEDS: LORAZEPAM 0.5 MG TABLET PO SCH (16:53)
[2022-07-17] MEDS: CARBIDOPA/LEVODOPA 25/100 MG 1 UDTAB PO SCH (16:53)
[2022-07-17 20:00] VITALS: BP 128/78
[2022-07-17 22:46] VITALS: BP 128/78
[2022-07-18 08:00] VITALS: BP 117/60
[2022-07-18] MEDS: QUETIAPINE FUMARATE 25 MG TABLET PO SCH ×4 (08:00→21:13)
[2022-07-18] MEDS: DOCUSATE SODIUM 250 MG CAPSULE PO SCH ×2 (08:51→09:00)
[2022-07-18] MEDS: BENZTROPINE MESYLATE (1 MG) 1 MG TABLET PO SCH ×4 (08:51→16:17)
[2022-07-18] MEDS: OXCARBAZEPINE 150 MG TABLET PO SCH ×4 (08:51→16:17)
[2022-07-18] MEDS: CARBIDOPA/LEVODOPA 25/100 MG 1 UDTAB PO SCH ×4 (08:51→16:17)
[2022-07-18] MEDS: LORAZEPAM 0.5 MG TABLET PO SCH ×4 (08:51→16:17)
[2022-07-18 16:00] VITALS: BP 102/74
[2022-07-18 20:47] VITALS: BP 106/60
[2022-07-19] MEDS: TEMAZEPAM 7.5 MG CAPSULE PO PRN ×2 (00:25→23:04)
[2022-07-19 08:00] VITALS: BP 100/61
[2022-07-19] MEDS: OXCARBAZEPINE 150 MG TABLET PO SCH ×3 (08:37→16:43)
[2022-07-19] MEDS: QUETIAPINE FUMARATE 25 MG TABLET PO SCH ×3 (08:37→20:52)
[2022-07-19] MEDS: DOCUSATE SODIUM 250 MG CAPSULE PO SCH (08:38)
[2022-07-19] MEDS: CARBIDOPA/LEVODOPA 25/100 MG 1 UDTAB PO SCH ×3 (08:38→16:43)
[2022-07-19] MEDS: LORAZEPAM 0.5 MG TABLET PO SCH ×3 (08:38→16:43)
[2022-07-19] MEDS: BENZTROPINE MESYLATE (1 MG) 1 MG TABLET PO SCH ×3 (08:39→16:43)
[2022-07-19 16:00] VITALS: BP_SYST 127; BP_SYST 136; BP_DIAS 81
[2022-07-19 20:16] VITALS: BP 137/65
[2022-07-20 08:00] VITALS: BP 149/89
[2022-07-20] MEDS: QUETIAPINE FUMARATE 25 MG TABLET PO SCH ×3 (08:00→21:47)
[2022-07-20] MEDS: OXCARBAZEPINE 150 MG TABLET PO SCH ×3 (08:46→16:13)
[2022-07-20] MEDS: LORAZEPAM 0.5 MG TABLET PO SCH ×3 (08:47→16:13)
[2022-07-20] MEDS: CARBIDOPA/LEVODOPA 25/100 MG 1 UDTAB PO SCH ×3 (08:47→16:13)
[2022-07-20] MEDS: DOCUSATE SODIUM 250 MG CAPSULE PO SCH (08:47)
[2022-07-20] MEDS: BENZTROPINE MESYLATE (1 MG) 1 MG TABLET PO SCH ×3 (08:47→16:13)
[2022-07-20] MEDS: LORAZEPAM 1 MG TABLET PO PRN (12:36)
[2022-07-20 16:00] VITALS: BP 152/80
[2022-07-20 20:05] VITALS: BP 122/66
[2022-07-20] MEDS: TEMAZEPAM 7.5 MG CAPSULE PO PRN (21:47)
[2022-07-21 08:00] VITALS: BP 152/72
[2022-07-21] MEDS: LORAZEPAM 0.5 MG TABLET PO SCH ×3 (08:44→17:47)
[2022-07-21] MEDS: OXCARBAZEPINE 150 MG TABLET PO SCH ×3 (08:44→17:10)
[2022-07-21] MEDS: DOCUSATE SODIUM 250 MG CAPSULE PO SCH (08:44)
[2022-07-21] MEDS: BENZTROPINE MESYLATE (1 MG) 1 MG TABLET PO SCH ×3 (08:44→17:10)
[2022-07-21] MEDS: CARBIDOPA/LEVODOPA 25/100 MG 1 UDTAB PO SCH ×3 (08:44→17:10)
[2022-07-21] MEDS: QUETIAPINE FUMARATE 25 MG TABLET PO SCH ×3 (08:59→21:43)
[2022-07-21 16:00] VITALS: BP 130/69
[2022-07-21 20:07] VITALS: BP 128/75
[2022-07-22 08:00] VITALS: BP 145/85
[2022-07-22] MEDS: DOCUSATE SODIUM 250 MG CAPSULE PO SCH (08:21)
[2022-07-22] MEDS: CARBIDOPA/LEVODOPA 25/100 MG 1 UDTAB PO SCH ×3 (08:21→16:17)
[2022-07-22] MEDS: OXCARBAZEPINE 150 MG TABLET PO SCH ×3 (08:22→17:04)
[2022-07-22] MEDS: BENZTROPINE MESYLATE (1 MG) 1 MG TABLET PO SCH ×3 (08:22→16:17)
[2022-07-22] MEDS: QUETIAPINE FUMARATE 25 MG TABLET PO SCH ×3 (08:22→21:23)
[2022-07-22] MEDS: LORAZEPAM 0.5 MG TABLET PO SCH ×3 (08:22→16:48)
[2022-07-22 15:42] LABS: CALCIUM, SERUM 9.9 mg/dL (8.5-10.1); CREATININE 0.6 mg/dL (0.6-1.3); POTASSIUM 4.1 mmol/L (3.5-5.1)
[2022-07-22 16:00] VITALS: BP 144/74
[2022-07-22] MEDS: ENSURE ENLIVE 237 ML LIQUID (VANILLA) PO SCH (17:04)
[2022-07-22 19:44] VITALS: BP 101/58
[2022-07-22 19:57] VITALS: BP 101/58
[2022-07-22] MEDS: TEMAZEPAM 7.5 MG CAPSULE PO PRN (23:11)
[2022-07-23 08:00] VITALS: BP 133/74
[2022-07-23] MEDS: QUETIAPINE FUMARATE 25 MG TABLET PO SCH ×2 (08:29→21:46)
[2022-07-23] MEDS: ENSURE ENLIVE 237 ML LIQUID (VANILLA) PO SCH ×3 (08:30→17:15)
[2022-07-23] MEDS: BENZTROPINE MESYLATE (1 MG) 1 MG TABLET PO SCH ×3 (08:30→16:26)
[2022-07-23] MEDS: LORAZEPAM 0.5 MG TABLET PO SCH (08:30)
[2022-07-23] MEDS: DOCUSATE SODIUM 250 MG CAPSULE PO SCH (08:30)
[2022-07-23] MEDS: CARBIDOPA/LEVODOPA 25/100 MG 1 UDTAB PO SCH ×3 (08:30→16:26)
[2022-07-23] MEDS: OXCARBAZEPINE 150 MG TABLET PO SCH ×3 (08:30→16:26)
[2022-07-23 16:00] VITALS: BP 112/68
[2022-07-23 19:50] VITALS: BP 133/67
[2022-07-24 08:00] VITALS: BP 114/60
[2022-07-24] MEDS: ENSURE ENLIVE 237 ML LIQUID (VANILLA) PO SCH ×3 (08:00→16:28)
[2022-07-24] MEDS: BENZTROPINE MESYLATE (1 MG) 1 MG TABLET PO SCH ×3 (09:39→16:27)
[2022-07-24] MEDS: OXCARBAZEPINE 150 MG TABLET PO SCH ×3 (09:39→16:27)
[2022-07-24] MEDS: CARBIDOPA/LEVODOPA 25/100 MG 1 UDTAB PO SCH ×3 (09:39→16:27)
[2022-07-24] MEDS: DOCUSATE SODIUM 250 MG CAPSULE PO SCH (09:41)
[2022-07-24] MEDS: QUETIAPINE FUMARATE 25 MG TABLET PO SCH ×3 (09:46→21:30)
[2022-07-24 16:00] VITALS: BP 120/60
[2022-07-24 20:00] VITALS: BP 120/68
[2022-07-25 08:00] VITALS: BP 132/70
[2022-07-25] MEDS: ENSURE ENLIVE 237 ML LIQUID (VANILLA) PO SCH ×3 (09:20→17:31)
[2022-07-25] MEDS: BENZTROPINE MESYLATE (1 MG) 1 MG TABLET PO SCH ×3 (09:22→17:33)
[2022-07-25] MEDS: DOCUSATE SODIUM 250 MG CAPSULE PO SCH (09:22)
[2022-07-25] MEDS: CARBIDOPA/LEVODOPA 25/100 MG 1 UDTAB PO SCH ×3 (09:22→17:33)
[2022-07-25] MEDS: QUETIAPINE FUMARATE 25 MG TABLET PO SCH ×3 (09:22→21:39)
[2022-07-25] MEDS: OXCARBAZEPINE 150 MG TABLET PO SCH ×3 (09:22→17:33)
[2022-07-25 16:00] VITALS: BP 149/89
[2022-07-25 20:00] VITALS: BP 148/69
[2022-07-26 07:31] LABS: CREATININE 0.6 mg/dL (0.6-1.3); POTASSIUM 4.2 mmol/L (3.5-5.1)
[2022-07-26 08:00] VITALS: BP 110/68
[2022-07-26] MEDS: ENSURE ENLIVE 237 ML LIQUID (VANILLA) PO SCH ×3 (08:32→16:58)
[2022-07-26] MEDS: OXCARBAZEPINE 150 MG TABLET PO SCH ×3 (08:34→16:57)
[2022-07-26] MEDS: DOCUSATE SODIUM 250 MG CAPSULE PO SCH (08:34)
[2022-07-26] MEDS: BENZTROPINE MESYLATE (1 MG) 1 MG TABLET PO SCH ×2 (08:34→16:58)
[2022-07-26] MEDS: CARBIDOPA/LEVODOPA 25/100 MG 1 UDTAB PO SCH ×3 (08:36→16:57)
[2022-07-26] MEDS: QUETIAPINE FUMARATE 25 MG TABLET PO SCH ×3 (08:36→22:00)
[2022-07-26 16:00] VITALS: BP 132/70
[2022-07-26 20:00] VITALS: BP 125/69
[2022-07-26 20:07] VITALS: BP 125/69
[2022-07-27] MEDS: BENZTROPINE MESYLATE (1 MG) 1 MG TABLET PO SCH ×2 (07:54→17:05)
[2022-07-27] MEDS: OXCARBAZEPINE 150 MG TABLET PO SCH ×3 (07:54→17:05)
[2022-07-27] MEDS: DOCUSATE SODIUM 250 MG CAPSULE PO SCH (07:54)
[2022-07-27] MEDS: ENSURE ENLIVE 237 ML LIQUID (VANILLA) PO SCH ×3 (07:55→17:02)
[2022-07-27] MEDS: CARBIDOPA/LEVODOPA 25/100 MG 1 UDTAB PO SCH ×3 (07:55→17:05)
[2022-07-27] MEDS: QUETIAPINE FUMARATE 25 MG TABLET PO SCH ×3 (07:55→21:19)
[2022-07-27 08:00] VITALS: BP 125/57
[2022-07-27] MEDS ORDERED: SODIUM CHLORIDE 1000 MG TABLET PO ONE (10:00)
[2022-07-27 16:00] VITALS: BP 127/73
[2022-07-27 20:28] VITALS: BP 122/55
[2022-07-28 08:00] VITALS: BP 135/72
[2022-07-28] MEDS: OXCARBAZEPINE 150 MG TABLET PO SCH ×3 (08:09→16:02)
[2022-07-28] MEDS: QUETIAPINE FUMARATE 25 MG TABLET PO SCH ×3 (08:09→22:22)
[2022-07-28] MEDS: BENZTROPINE MESYLATE (1 MG) 1 MG TABLET PO SCH ×2 (08:09→16:02)
[2022-07-28] MEDS: CARBIDOPA/LEVODOPA 25/100 MG 1 UDTAB PO SCH ×3 (08:09→16:03)
[2022-07-28] MEDS: DOCUSATE SODIUM 250 MG CAPSULE PO SCH (08:09)
[2022-07-28] MEDS: ENSURE ENLIVE 237 ML LIQUID (VANILLA) PO SCH ×3 (08:09→16:01)
[2022-07-28 11:27] LABS: CALCIUM, SERUM 10.3 mg/dL (8.5-10.1); CARBON DIOXIDE 29 mmol/L (21-32); CHLORIDE 99 mmol/L (98-107); CREATININE 0.5 mg/dL (0.6-1.3); GLUCOSE 93 mg/dL (74-106); POTASSIUM 4.1 mmol/L (3.5-5.1); SODIUM SERUM 130 mmol/L (136-145); UREA NITROGEN, BLOOD 21 mg/dL (7-18)
[2022-07-28 16:00] VITALS: BP 138/69
[2022-07-28 20:00] VITALS: BP 135/74
[2022-07-29 08:00] VITALS: BP 101/55
[2022-07-29] MEDS: QUETIAPINE FUMARATE 25 MG TABLET PO SCH ×3 (08:00→21:40)
[2022-07-29] MEDS: BENZTROPINE MESYLATE (1 MG) 1 MG TABLET PO SCH ×2 (08:21→16:20)
[2022-07-29] MEDS: DOCUSATE SODIUM 250 MG CAPSULE PO SCH (08:21)
[2022-07-29] MEDS: OXCARBAZEPINE 150 MG TABLET PO SCH ×3 (08:21→16:20)
[2022-07-29] MEDS: CARBIDOPA/LEVODOPA 25/100 MG 1 UDTAB PO SCH ×3 (08:21→16:20)
[2022-07-29] MEDS: ENSURE ENLIVE 237 ML LIQUID (VANILLA) PO SCH ×3 (08:21→16:21)
[2022-07-29 16:00] VITALS: BP 122/62
[2022-07-29] MEDS: SODIUM CHLORIDE 1000 MG TABLET PO SCH (17:36)
[2022-07-29 20:00] VITALS: BP 124/68
[2022-07-29] MEDS: LORAZEPAM 1 MG TABLET PO PRN (20:52)
[2022-07-29 21:32] VITALS: BP 124/68
[2022-07-30 08:00] VITALS: BP 142/72
[2022-07-30] MEDS: ENSURE ENLIVE 237 ML LIQUID (VANILLA) PO SCH ×3 (08:00→17:01)
[2022-07-30] MEDS: SODIUM CHLORIDE 1000 MG TABLET PO SCH ×2 (09:27→17:02)
[2022-07-30] MEDS: QUETIAPINE FUMARATE 25 MG TABLET PO SCH ×3 (09:27→22:01)
[2022-07-30] MEDS: BENZTROPINE MESYLATE (1 MG) 1 MG TABLET PO SCH ×2 (09:27→17:01)
[2022-07-30] MEDS: OXCARBAZEPINE 150 MG TABLET PO SCH ×3 (09:27→17:02)
[2022-07-30] MEDS: CARBIDOPA/LEVODOPA 25/100 MG 1 UDTAB PO SCH ×3 (09:27→17:01)
[2022-07-30] MEDS: DOCUSATE SODIUM 250 MG CAPSULE PO SCH (09:27)
[2022-07-30 16:00] VITALS: BP 107/61
[2022-07-30 19:50] VITALS: BP 115/46
[2022-07-30] MEDS: LORAZEPAM 1 MG TABLET PO PRN (20:35)
[2022-07-30 21:45] VITALS: BP 125/81
[2022-07-31 08:00] VITALS: BP 121/67
[2022-07-31] MEDS: DOCUSATE SODIUM 250 MG CAPSULE PO SCH (08:15)
[2022-07-31] MEDS: QUETIAPINE FUMARATE 25 MG TABLET PO SCH (08:15)
[2022-07-31] MEDS: OXCARBAZEPINE 150 MG TABLET PO SCH ×2 (08:15→12:01)
[2022-07-31] MEDS: SODIUM CHLORIDE 1000 MG TABLET PO SCH (08:15)
[2022-07-31] MEDS: BENZTROPINE MESYLATE (1 MG) 1 MG TABLET PO SCH (08:15)
[2022-07-31] MEDS: ENSURE ENLIVE 237 ML LIQUID (VANILLA) PO SCH ×2 (08:15→12:02)
[2022-07-31] MEDS: CARBIDOPA/LEVODOPA 25/100 MG 1 UDTAB PO SCH ×2 (08:18→12:01)
== END 2022-07-31 13:20 | DRG 885 ==
LOC: ER 22:21 → TRANSITION 07-15 04:32 → GPS 07-15 14:19
PROVIDERS: ADMIT Psychiatry & Neurology Psychosomatic Medicine; ATTEND Nurse Practitioner Acute Care
DX: F25.0 Schizoaffective disorder, bipolar type (principal); E44.1 Mild protein-calorie malnutrition; E87.1 Hypo-osmolality and hyponatremia; F29 Unspecified psychosis not due to a substance or known physiological condition; Z20.822 Contact with and (suspected) exposure to COVID-19; R41.9 Unspecified symptoms and signs involving cognitive functions and awareness; Z91.14 Patient's other noncompliance with medication regimen; I10 Essential (primary) hypertension; Z90.710 Acquired absence of both cervix and uterus; Z85.42 Personal history of malignant neoplasm of other parts of uterus; Z88.8 Allergy status to other drugs, medicaments and biological substances; Z79.899 Other long term (current) drug therapy; G20 Parkinson's disease; E78.5 Hyperlipidemia, unspecified; J45.909 Unspecified asthma, uncomplicated; E03.9 Hypothyroidism, unspecified; E88.09 Other disorders of plasma-protein metabolism, not elsewhere classified; D72.829 Elevated white blood cell count, unspecified; F32.9 Major depressive disorder, single episode, unspecified; Z87.891 Personal history of nicotine dependence; Z68.21 Body mass index [BMI] 21.0-21.9, adult
CPT/HCPCS: 36415; 80048-TC; 80053-TC; 80076-TC; 81001; 82962-TC; 84295-TC; 85025-TC; 87081-TC; C9803; G0480

== ENCOUNTER 2023-02-27 23:44 | Inpatient (IN) | payer MEDICARE, OTHER ==
[~2023-02-27] VITALS: Ht 170.2 cm; Wt 57.6 kg
[~2023-02-27 23:44] MED LIST changes: +ACET-868 PO; +BISA10SU11 RC; -CARB1TAB21 PO; +CARB25TA3 PO; +CHOL100043 PO; -CHOLECALCIFEROL PO; -DESV50TA PO; -DOCU-141 PO; +DOCU250C14 PO; -LAMO100T2 PO; +MAGN400O6 PO; +NA P133E RC; -NICO-676 TP; +OXCA300T15 PO; +TEMA7.5C12 PO; +TYL2T PO
[2023-02-28] MEDS ORDERED: ZOLPIDEM TARTRATE 5 MG TABLET PO PRN (00:30)
[2023-02-28] MEDS ORDERED: MAGNESIUM HYDROXIDE 30 ML UDC PO PRN (00:30)
[2023-02-28] MEDS ORDERED: ACETAMINOPHEN 325 MG TABLET PO PRN (00:30)
[2023-02-28] MEDS ORDERED: MAG HYDROX/AL HYDROX/SIMETH 30 ML UDC PO PRN (00:30)
[2023-02-28] MEDS ORDERED: BLOOD SUGAR DIAGNOSTIC 1 EACH STRIP IN ONE (00:30)
[2023-02-28] MEDS ORDERED: BISA-79 PO (00:46)
[2023-02-28] MEDS ORDERED: CARB-92 PO (00:49)
[2023-02-28] MEDS ORDERED: LAMO150T6 PO (00:50)
[2023-02-28] MEDS ORDERED: LORA-259 PO (00:51)
[2023-02-28] MEDS ORDERED: MELA5TAB PO (00:52)
[2023-02-28] MEDS ORDERED: QUET300T2 PO (00:54)
[2023-02-28 02:00] VITALS: BP 135/79; TEMP 98; O2SAT 98
[2023-02-28] MEDS ORDERED: Z GUARD REMEDY 4 OZ OINT TP PRN (03:00)
[2023-02-28 05:43] VITALS: BP 116/66; TEMP 97.5; O2SAT 95
[2023-02-28 08:00] VITALS: BP 138/83; TEMP 97.7; O2SAT 96
[2023-02-28 08:16] LABS: BASOPHILS % (AUTO) 0.5 % (0.0-2.0); EOSINOPHILS # (AUTO) 0.3 K/uL (0.0-0.7); EOSINOPHILS % (AUTO) 3.7 % (0.0-6.0); HEMATOCRIT 43 % (33-45); HEMOGLOBIN 13.6 g/dL (11.5-14.8); LYMPHOCYTES # (AUTO) 1.6 K/uL (0.8-4.8); LYMPHOCYTES % (AUTO) 23.1 % (20.0-44.0); MEAN CORPUSCULAR HEMOGLOBIN 31 PG (26.0-33.0); MEAN CORPUSCULAR HGB CONC 32 g/dl (31.0-36.0); MEAN CORPUSCULAR VOLUME 99 fL (82-100); MONOCYTES # (AUTO) 0.6 K/uL (0.1-1.30); MONOCYTES % (AUTO) 8.4 % (2.0-12.0); NEUTROPHILS # (AUTO) 4.4 K/uL (1.8-8.9); NEUTROPHILS % (AUTO) 64.3 % (43.0-81.0); PLATELET COUNT (AUTO) 263 K/uL (150-450); RED BLOOD CELL COUNT(AUTO) 4.38 MIL/uL (4.0-5.2); RED CELL DISTRIBUTION WIDTH 15.7 % (11.5-15.0); WHITE BLOOD COUNT (AUTO) 6.9 K/uL (4.3-11.0)
[2023-02-28 08:21] LABS: CALCIUM, SERUM 10.1 mg/dL (8.5-10.1); CREATININE 0.6 mg/dL (0.6-1.3); POTASSIUM 4.7 mmol/L (3.5-5.1)
[2023-02-28] MEDS ORDERED: SENN-301 PO (10:04)
[2023-02-28] MEDS ORDERED: POLY17PO4 PO (10:04)
[2023-02-28] MEDS: QUETIAPINE FUMARATE 25 MG TABLET PO SCH ×2 (13:16→20:23)
[2023-02-28] MEDS: CARBIDOPA/LEVODOPA 10/100 MG 1 UDTAB PO SCH ×2 (13:21→16:49)
[2023-02-28 16:00] VITALS: BP 99/71; TEMP 98; O2SAT 93
[2023-02-28] MEDS: OXCARBAZEPINE 150 MG TABLET PO SCH (16:49)
[2023-02-28] MEDS: Z GUARD REMEDY 4 OZ OINT TP SCH (17:13)
[2023-02-28 20:00] VITALS: BP 114/70; TEMP 98.4; O2SAT 98
[2023-02-28] MEDS: POLYETHYLENE GLYCOL 3350 17 GM POWD.PACK PO SCH (21:01)
[2023-03-01 08:00] VITALS: BP 149/68; TEMP 97.7; O2SAT 98
[2023-03-01] MEDS: OXCARBAZEPINE 150 MG TABLET PO SCH ×2 (08:30→17:50)
[2023-03-01] MEDS: QUETIAPINE FUMARATE 25 MG TABLET PO SCH ×2 (08:30→21:24)
[2023-03-01] MEDS: Z GUARD REMEDY 4 OZ OINT TP SCH ×2 (08:31→17:44)
[2023-03-01] MEDS: CARBIDOPA/LEVODOPA 10/100 MG 1 UDTAB PO SCH ×3 (08:33→17:43)
[2023-03-01 16:00] VITALS: BP 116/68; TEMP 98.8; O2SAT 96
[2023-03-01 20:33] VITALS: BP 126/83; TEMP 97.9; O2SAT 95
[2023-03-01] MEDS: POLYETHYLENE GLYCOL 3350 17 GM POWD.PACK PO SCH (21:24)
[2023-03-02 08:00] VITALS: BP 130/85; TEMP 97.7; O2SAT 98
[2023-03-02] MEDS: QUETIAPINE FUMARATE 25 MG TABLET PO SCH ×2 (08:12→20:50)
[2023-03-02] MEDS: OXCARBAZEPINE 150 MG TABLET PO SCH ×2 (08:13→16:43)
[2023-03-02] MEDS: CARBIDOPA/LEVODOPA 10/100 MG 1 UDTAB PO SCH ×3 (08:22→16:43)
[2023-03-02] MEDS: Z GUARD REMEDY 4 OZ OINT TP SCH ×2 (08:27→16:44)
[2023-03-02 16:00] VITALS: BP 128/63; TEMP 98.6; O2SAT 97
[2023-03-02 20:16] VITALS: BP 147/89; TEMP 97.9; O2SAT 98
[2023-03-02] MEDS: POLYETHYLENE GLYCOL 3350 17 GM POWD.PACK PO SCH (21:01)
[2023-03-03 08:00] VITALS: BP 128/88; TEMP 97.4; O2SAT 98
[2023-03-03] MEDS: QUETIAPINE FUMARATE 25 MG TABLET PO SCH ×2 (08:19→20:40)
[2023-03-03] MEDS: OXCARBAZEPINE 150 MG TABLET PO SCH ×2 (08:19→17:07)
[2023-03-03] MEDS: Z GUARD REMEDY 4 OZ OINT TP SCH ×2 (08:20→17:07)
[2023-03-03] MEDS: CARBIDOPA/LEVODOPA 10/100 MG 1 UDTAB PO SCH ×3 (08:20→17:06)
[2023-03-03 16:00] VITALS: BP 140/65; TEMP 97.6; O2SAT 97
[2023-03-03 20:13] VITALS: BP 127/86; TEMP 97.5; O2SAT 99
[2023-03-03] MEDS: POLYETHYLENE GLYCOL 3350 17 GM POWD.PACK PO SCH (21:14)
[2023-03-04 08:00] VITALS: BP 123/63; TEMP 98.1; O2SAT 96
[2023-03-04] MEDS: QUETIAPINE FUMARATE 25 MG TABLET PO SCH ×2 (08:19→20:15)
[2023-03-04] MEDS: CARBIDOPA/LEVODOPA 10/100 MG 1 UDTAB PO SCH ×3 (08:19→16:26)
[2023-03-04] MEDS: OXCARBAZEPINE 150 MG TABLET PO SCH ×2 (08:19→16:26)
[2023-03-04] MEDS: Z GUARD REMEDY 4 OZ OINT TP SCH ×2 (09:45→16:27)
[2023-03-04 16:00] VITALS: BP 125/66; TEMP 98.7; O2SAT 95
[2023-03-04] MEDS: LORAZEPAM 1 MG TABLET PO PRN (19:39)
[2023-03-04 19:57] VITALS: BP 142/84; TEMP 98.6; O2SAT 98
[2023-03-04] MEDS: POLYETHYLENE GLYCOL 3350 17 GM POWD.PACK PO SCH (22:00)
[2023-03-05 08:00] VITALS: BP 120/91; TEMP 97.6; O2SAT 96
[2023-03-05] MEDS: QUETIAPINE FUMARATE 25 MG TABLET PO SCH ×2 (08:57→21:19)
[2023-03-05] MEDS: OXCARBAZEPINE 150 MG TABLET PO SCH ×2 (08:57→16:28)
[2023-03-05] MEDS: CARBIDOPA/LEVODOPA 10/100 MG 1 UDTAB PO SCH ×3 (08:57→16:28)
[2023-03-05] MEDS: Z GUARD REMEDY 4 OZ OINT TP SCH ×2 (09:45→17:11)
[2023-03-05 15:58] VITALS: BP 128/70; TEMP 97.6; O2SAT 97
[2023-03-05 20:00] VITALS: BP 125/89; TEMP 98.4; O2SAT 98
[2023-03-05] MEDS: POLYETHYLENE GLYCOL 3350 17 GM POWD.PACK PO SCH (21:41)
[2023-03-06 08:00] VITALS: BP 106/62; TEMP 97.6; O2SAT 94
[2023-03-06] MEDS: CARBIDOPA/LEVODOPA 10/100 MG 1 UDTAB PO SCH ×3 (09:10→16:38)
[2023-03-06] MEDS: QUETIAPINE FUMARATE 25 MG TABLET PO SCH ×2 (09:10→21:00)
[2023-03-06] MEDS: OXCARBAZEPINE 150 MG TABLET PO SCH ×2 (09:10→16:38)
[2023-03-06] MEDS: Z GUARD REMEDY 4 OZ OINT TP SCH ×2 (09:13→17:45)
[2023-03-06 16:00] VITALS: BP 130/65; TEMP 98.4; O2SAT 96
[2023-03-06 20:29] VITALS: BP 144/64; TEMP 98.6; O2SAT 99
[2023-03-06] MEDS: POLYETHYLENE GLYCOL 3350 17 GM POWD.PACK PO SCH (22:00)
[2023-03-06] MEDS: LORAZEPAM 1 MG TABLET PO PRN (23:43)
[2023-03-07 08:00] VITALS: BP 129/77; TEMP 97.6; O2SAT 97
[2023-03-07] MEDS: CARBIDOPA/LEVODOPA 10/100 MG 1 UDTAB PO SCH ×3 (08:46→16:33)
[2023-03-07] MEDS: QUETIAPINE FUMARATE 25 MG TABLET PO SCH ×2 (08:46→21:14)
[2023-03-07] MEDS: OXCARBAZEPINE 150 MG TABLET PO SCH ×2 (08:46→16:33)
[2023-03-07] MEDS: Z GUARD REMEDY 4 OZ OINT TP SCH ×2 (08:57→16:47)
[2023-03-07] MEDS: ENSURE ENLIVE 237 ML LIQUID (VANILLA) PO SCH (08:57)
[2023-03-07 16:00] VITALS: BP 134/72; TEMP 97.6; O2SAT 96
[2023-03-07 20:00] VITALS: BP 135/71; TEMP 98.4; O2SAT 99
[2023-03-07] MEDS: POLYETHYLENE GLYCOL 3350 17 GM POWD.PACK PO SCH (21:20)
[2023-03-08 08:02] VITALS: BP 115/83; TEMP 98.1; O2SAT 100
[2023-03-08] MEDS: OXCARBAZEPINE 150 MG TABLET PO SCH ×2 (09:09→17:01)
[2023-03-08] MEDS: QUETIAPINE FUMARATE 25 MG TABLET PO SCH ×2 (09:09→21:20)
[2023-03-08] MEDS: ENSURE ENLIVE 237 ML LIQUID (VANILLA) PO SCH (09:10)
[2023-03-08] MEDS: CARBIDOPA/LEVODOPA 10/100 MG 1 UDTAB PO SCH ×3 (09:10→17:01)
[2023-03-08] MEDS: Z GUARD REMEDY 4 OZ OINT TP SCH ×2 (09:11→17:02)
[2023-03-08 15:55] VITALS: BP 95/56; TEMP 97.6; O2SAT 95
[2023-03-08 20:13] VITALS: BP 121/61; TEMP 98.3; O2SAT 96
[2023-03-08] MEDS: POLYETHYLENE GLYCOL 3350 17 GM POWD.PACK PO SCH (21:19)
[2023-03-09 08:00] VITALS: BP 125/68; TEMP 98.1; O2SAT 96
[2023-03-09] MEDS: OXCARBAZEPINE 150 MG TABLET PO SCH ×2 (08:42→16:30)
[2023-03-09] MEDS: CARBIDOPA/LEVODOPA 10/100 MG 1 UDTAB PO SCH ×3 (08:42→16:30)
[2023-03-09] MEDS: Z GUARD REMEDY 4 OZ OINT TP SCH ×2 (08:42→16:30)
[2023-03-09] MEDS: QUETIAPINE FUMARATE 25 MG TABLET PO SCH ×2 (08:42→21:00)
[2023-03-09] MEDS: ENSURE ENLIVE 237 ML LIQUID (VANILLA) PO SCH (08:42)
[2023-03-09 16:00] VITALS: BP 116/64; TEMP 99.1; O2SAT 96
[2023-03-09 20:09] VITALS: BP 107/52; TEMP 98.8; O2SAT 95
[2023-03-09] MEDS: POLYETHYLENE GLYCOL 3350 17 GM POWD.PACK PO SCH (21:57)
[2023-03-10 08:00] VITALS: BP 149/89; TEMP 98; O2SAT 100
[2023-03-10] MEDS: OXCARBAZEPINE 150 MG TABLET PO SCH ×4 (08:55→16:25)
[2023-03-10] MEDS: QUETIAPINE FUMARATE 25 MG TABLET PO SCH ×5 (08:55→21:00)
[2023-03-10] MEDS: CARBIDOPA/LEVODOPA 10/100 MG 1 UDTAB PO SCH ×4 (08:55→16:25)
[2023-03-10] MEDS: Z GUARD REMEDY 4 OZ OINT TP SCH ×2 (08:55→16:26)
[2023-03-10] MEDS: ENSURE ENLIVE 237 ML LIQUID (VANILLA) PO SCH (08:55)
[2023-03-10] MEDS ORDERED: ZIPRASIDONE MESYLATE 20 MG/VIAL VIAL IM ONE ×2 (09:30)
[2023-03-10 16:00] VITALS: BP 132/85; TEMP 98.6; O2SAT 97
[2023-03-10 20:55] VITALS: BP 155/65; TEMP 97.9; O2SAT 100
[2023-03-10] MEDS: POLYETHYLENE GLYCOL 3350 17 GM POWD.PACK PO SCH (21:04)
[2023-03-11 08:00] VITALS: BP 140/67; TEMP 97.8; O2SAT 98
[2023-03-11] MEDS: ENSURE ENLIVE 237 ML LIQUID (VANILLA) PO SCH (08:07)
[2023-03-11] MEDS: Z GUARD REMEDY 4 OZ OINT TP SCH ×2 (08:27→16:15)
[2023-03-11] MEDS: QUETIAPINE FUMARATE 25 MG TABLET PO SCH (09:24)
[2023-03-11] MEDS: CARBIDOPA/LEVODOPA 10/100 MG 1 UDTAB PO SCH ×3 (09:24→16:21)
[2023-03-11] MEDS: OXCARBAZEPINE 150 MG TABLET PO SCH ×3 (09:25→16:21)
[2023-03-11 16:00] VITALS: BP 108/62; TEMP 98.8; O2SAT 97
[2023-03-11] MEDS: risperiDONE-M 0.5 MG TAB.RAPDIS PO SCH (16:22)
[2023-03-11 20:06] VITALS: BP 122/64; TEMP 98.8; O2SAT 100
[2023-03-11] MEDS: LITHIUM CARBONATE 150 MG CAPSULE PO SCH (20:19)
[2023-03-11] MEDS: POLYETHYLENE GLYCOL 3350 17 GM POWD.PACK PO SCH (21:11)
[2023-03-12 08:00] VITALS: BP 116/78; TEMP 98.4; O2SAT 98
[2023-03-12] MEDS: risperiDONE-M 0.5 MG TAB.RAPDIS PO SCH ×2 (08:00→16:25)
[2023-03-12] MEDS: LITHIUM CARBONATE 150 MG CAPSULE PO SCH ×2 (08:00→21:16)
[2023-03-12] MEDS: OXCARBAZEPINE 150 MG TABLET PO SCH ×3 (08:00→16:24)
[2023-03-12] MEDS: CARBIDOPA/LEVODOPA 10/100 MG 1 UDTAB PO SCH ×3 (08:00→16:24)
[2023-03-12] MEDS: ENSURE ENLIVE 237 ML LIQUID (VANILLA) PO SCH (08:01)
[2023-03-12] MEDS: Z GUARD REMEDY 4 OZ OINT TP SCH ×2 (09:52→16:26)
[2023-03-12 16:00] VITALS: BP 125/63; TEMP 98.2; O2SAT 99
[2023-03-12 20:00] VITALS: BP 99/55; TEMP 97.9; O2SAT 97
[2023-03-12] MEDS: POLYETHYLENE GLYCOL 3350 17 GM POWD.PACK PO SCH (21:16)
[2023-03-13 08:00] VITALS: BP 143/73; TEMP 97.9; O2SAT 97
[2023-03-13] MEDS: ENSURE ENLIVE 237 ML LIQUID (VANILLA) PO SCH (08:34)
[2023-03-13] MEDS: OXCARBAZEPINE 150 MG TABLET PO SCH ×2 (08:35→12:16)
[2023-03-13] MEDS: LITHIUM CARBONATE 150 MG CAPSULE PO SCH (08:35)
[2023-03-13] MEDS: CARBIDOPA/LEVODOPA 10/100 MG 1 UDTAB PO SCH ×2 (08:35→12:16)
[2023-03-13] MEDS: risperiDONE-M 0.5 MG TAB.RAPDIS PO SCH (08:35)
[2023-03-13] MEDS: Z GUARD REMEDY 4 OZ OINT TP SCH (08:36)
== END 2023-03-13 13:40 | DRG 885 ==
LOC: GPS 23:44
PROVIDERS: ADMIT Psychiatry & Neurology Psychiatry; ATTEND Nurse Practitioner Acute Care
DX: F31.64 Bipolar disorder, current episode mixed, severe, with psychotic features (principal); E87.1 Hypo-osmolality and hyponatremia; F02.818 Dementia in other diseases classified elsewhere, unspecified severity, with other behavioral disturbance; F29 Unspecified psychosis not due to a substance or known physiological condition; I10 Essential (primary) hypertension; M19.90 Unspecified osteoarthritis, unspecified site; J45.909 Unspecified asthma, uncomplicated; E78.5 Hyperlipidemia, unspecified; Z85.42 Personal history of malignant neoplasm of other parts of uterus; Z87.891 Personal history of nicotine dependence; Z87.440 Personal history of urinary (tract) infections; Z73.6 Limitation of activities due to disability; G20.A1 Parkinson's disease without dyskinesia, without mention of fluctuations
CPT/HCPCS: 36415; 80048-TC; 80061-TC; 85025-TC; 87081-TC; 97112-TC; 97116-TC; 97530-TC; J3486